=== PATIENT | male | born 1955 | race Caucasian/White ===

== ENCOUNTER 2024-08-28 13:50 | Emergency (ER) | payer MEDICARE, MEDICAID, SELFPAY ==
[2024-08-28] VITALS (13 sets, daily range): BP systolic 116–153; BP diastolic 55–81; PULSE 71–83; RESP 17–20; TEMP 36.6–37; O2SAT 95–98
--- NOTE | ~2024-08-28 | XR_ITS ---
CHEST RADIOGRAPH CLINICAL HISTORY: cough/congestion . COMPARISON: None available TECHNIQUE: Single portable view of the chest. FINDINGS The cardiomediastinal silhouette is partially obscured Deep sulcus sign within the right hemithorax, with a paucity of lung markings as well as significant pleural thickening. Increased density within the right mid to lower lung field, possibly chronic. Cross-sectional imaging is recommended, if the patient is clinically able. IMPRESSION: As above. Reviewed, dictated and finalized at location A. ET AND PULLEY MACHINE OPERATOR IMPRESSION: As above.
--- NOTE | 2024-08-28 14:24 | ED.URI ---
HPI - URI/Sore Throat General Chief Complaint: Upper Respiratory Infection Stated Complaint: flu-like symptoms Time Seen by Provider: 08/28/24 14:24 Source: patient and EMS Mode of arrival: EMS Limitations: no limitations History of Present Illness HPI Narrative: 69 years old white male came to the ED by ambulance from home with his caregiver complaining of general body aches, chills, productive cough over the last 24 hours. Patient had 1 episode of loose stools this morning. Patient is supposed to be on 6 L of oxygen by nasal cannula all the time, patient noncompliance. Patient denies any chest pain, shortness of breath, back pain or abdominal pain. Patient reports that his granddaughter was having similar symptoms few days ago. Related Data Home Medications ?Medication ?Instructions ?Recorded ?Confirmed ?Last Taken ?Type amlodipine 5 mg tablet 7.5 mg PO BID 08/28/24 08/28/24 Unknown History apixaban 5 mg tablet (Eliquis) 5 mg PO BID 08/28/24 08/28/24 Unknown History donepezil 10 mg tablet 10 mg PO HS 08/28/24 08/28/24 Unknown History duloxetine 60 mg capsule,delayed 60 mg PO DAILY 08/28/24 08/28/24 Unknown History release gabapentin 600 mg tablet 300 mg PO TID 08/28/24 08/28/24 Unknown History hydrochlorothiazide 25 mg tablet 25 mg PO DAILY 08/28/24 08/28/24 Unknown History mirtazapine 30 mg disintegrating 30 mg PO HS 08/28/24 08/28/24 Unknown History tablet pantoprazole 40 mg tablet,delayed 40 mg PO HS 08/28/24 08/28/24 Unknown History release potassium chloride 10 mEq 10 meq PO DAILY 08/28/24 08/28/24 Unknown History tablet,extended release (Klor-Con) pravastatin 40 mg tablet 40 mg PO HS 08/28/24 08/28/24 Unknown History primidone 50 mg tablet 50 mg PO HS 08/28/24 08/28/24 Unknown History tamsulosin 0.4 mg capsule 0.4 mg PO DAILY 08/28/24 08/28/24 Unknown History Allergies Allergy/AdvReac Type Severity Reaction Status Date / Time No Known Allergies Allergy Verified 08/28/24 14:13 Review of Systems Review of Systems: All systems reviewed & are unremarkable except as noted in HPI and below Exam Narrative: General appearance: Well-developed, well-nourished Skin: Normal color Head: Normocephalic, nontraumatic Eyes: Clear conjunctiva ENT: Oropharynx normal, ears normal, nose normal Neck: Supple, nontender Chest and respiratory: Airway patent, no respiratory distress, no accessory muscle use Heart: Regular rate/rhythm Abdomen: Soft, nontender, no organomegaly, quiet bowel sounds Vascular: Normal peripheral pulses, normal capillary refill. Musculoskeletal: Normal range of motion, nontender back Neurologic: Alert and oriented ?3, GRADUATE STUDIES DEAN is normal as tested, no gross motor deficit Course Vital Signs Vital signs: Vital Signs Temperature 36.6 C 08/28/24 13:56 Pulse Rate 71 08/28/24 13:56 Respiratory Rate 20 08/28/24 13:56 Blood Pressure 121/70 08/28/24 13:56 Pulse Oximetry 95 08/28/24 13:56 Oxygen Delivery Nasal Cannula 08/28/24 13:56 Oxygen Flow Rate 6 08/28/24 13:56 Temperature 36.6 C 08/28/24 13:56 Pulse Rate 80 08/28/24 14:51 Respiratory Rate 20 08/28/24 14:51 Blood Pressure 121/70 08/28/24 13:56 Pulse Oximetry 98 08/28/24 14:51 Oxygen Delivery Room Air 08/28/24 14:11 Oxygen Flow Rate 6 08/28/24 13:56 MDM - URI/Sore Throat MDM Narrative Medical decision making narrative: PATIENT CAME WITH PRODUCTIVE COUGH AND CHILLS AND RESPIRATORY VIRAL INFECTION CONTACT VITAL SIGNS ARE STABLE PHYSICAL EXAMINATION SHOWING PATIENT WITH INTERMITTENT PRODUCTIVE COUGH, 6 L OF OXYGEN BY NASAL CANNULA /CHRONIC , SCATTERED WHEEZING BILATERALLY DIFFERENTIAL DIAGNOSIS COPD EXACERBATION, PNEUMONIA, UPPER RESPIRATORY VIRAL INFECTION TODAY PATIENT TESTED NEGATIVE FOR COVID, FLU AND RSV CHEST X-RAY SHOWED NO ACUTE ABNORMALITY BLOOD WORKUP TODAY INCLUDES CBC, CMP SHOWED NO ACUTE ABNORMALITIES PATIENT DECLINED BLOOD GAS . HIS SATURATION RUNNING IN THE 98 %, PULSE OXIMETRY ON HIS NORMAL 6 L OF OXYGEN Medical Records Attestation: I reviewed the patient's medical records. Lab Data Attestation: I reviewed the patient's lab results. 08/28/24 14:44 08/28/24 14:44 Labs: Lab Results 08/28/24 08/28/24 Range/Units 14:03 14:44 WBC 9.5 (4.8-10.8) K/mm3 RBC 4.54 L (4.70-6.10) M/mm3 Hgb 12.5 (12.4-15.3) g/dL Hct 39.6 (37.0-46.0) % MCV 87.2 (78.0-102.0) fL MCH 27.5 (27.0-31.0) pg MCHC 31.6 L (32-36) g/dL RDW 14.0 (11.6-14.4) % Plt Count 355 (150-420) K/mm3 MPV 9.8 (8.7-11.0) fl Immature Gran % (Auto) 0.6 H (0.0-0.0) % Neut % (Auto) 55.5 (50.0-70.0) % Lymph % (Auto) 33.9 (18.0-42.0) % [place] % (Auto) 9.1 (2.0-11.0) % Eos % (Auto) 0.7 L (1.0-6.0) % Baso % (Auto) 0.2 (0.0-1.0) % Lymph # (Auto) 3.21 (1.10-4.50) K/mm3 [place] # (Auto) 0.86 (0.10-0.90) K/mm3 Eos # (Auto) 0.07 (0.02-0.50) K/mm3 Baso # (Auto) 0.02 (0.00-0.10) K/mm3 Abs Immat Gran (auto) 0.06 H (0.00-0.00) K/mm3 Absolute Neuts (auto) 5.25 (1.70-7.20) K/mm3 Absolute Nucleated RBC 0.00 (0.00-0.00) K/mm3 Nucleated RBC % 0.0 (0-0.0) % PT 12.2 H (9.50-12.1) Seconds INR 1.1 APTT 33.8 H (23.9-30.70) Sec Sodium 141 (136-145) mmol/L Potassium 3.8 (3.5-5.1) mmol/L Chloride 100 (98-108) mmol/L Carbon Dioxide 34 H (21-32) mmol/L Anion Gap 7 (4-12) mmol/L BUN 10 (7-18) mg/dL Creatinine 1.06 (0.70-1.30) mg/dL Estim Creat Clear Calc 63 ml/min Estimated GFR > 60 (59 - ) Glucose 102 H (70-99) mg/dL Calculated Osmolality 291 (285-295) mOsm/kg Calcium 9.4 (8.5-10.1) mg/dL Total Bilirubin 0.4 (0.00-1.00) mg/dL AST 19 (15-37) U/L ALT 19 (16-63) U/L Alkaline Phosphatase 110 (46-116) U/L Troponin I 9.0 (0.00-60.4) ng/L NT-Pro-B Natriuret Pep 142 H (0-125) pg/mL Total Protein 8.0 (6.4-8.2) g/dL Albumin 3.3 L (3.4-5.0) g/dL Influenza A (RT-PCR) Negative (Negative) Influenza B (RT-PCR) Negative (Negative) RSV (RT-PCR) Negative (Negative) SARS-CoV-2 RNA (RT-PCR) Negative (Negative) Imaging Data Radiologist's impression: Impressions Chest X-Ray 08/28/24 14:25 IMPRESSION: As above. ECG Data EKG #1: Attestation: I personally reviewed and interpreted this ECG as follows: ECG completion date: 08/28/24 Interpretation: NORMAL SINUS RHYTHM AT 75 BEATS PER MINUTE, NONSPECIFIC ST T T-WAVE ABNORMALITIES, ABNORMAL EKG Critical Care Time Critical Care Time Critical Care Time: No Discharge Plan Discharge Clinical Impression: COPD (chronic obstructive pulmonary disease) Patient Disposition: Home, Self-Care Condition: Stable Instructions: Antibiotic Form, COPD (Chronic Obstructive Pulmonary Disease) (DC) Additional Instructions: RETURN IF SYMPTOMS ARE WORSENING , CALL YOUR FAMILY PHYSICIAN FOR APPOINTMENT, TAKE TYLENOL NEEDED FOR ACHES AND PAIN, CONTINUE HOME MEDICATIONS. CONTINUE HOME OXYGEN BY NASAL CANNULA AT 6 L ALL THE TIME Patient Language: [place] Prescriptions: New levofloxacin 500 mg tablet 500 mg PO DAILY Qty: 7 0RF prednisone 20 mg tablet 40 mg PO DAILY 5 Days Qty: 10 0RF No Action duloxetine 60 mg capsule,delayed release(DR/EC) 60 mg PO DAILY hydrochlorothiazide 25 mg tablet 25 mg PO DAILY pantoprazole 40 mg tablet,delayed release (DR/EC) 40 mg PO HS potassium chloride [Klor-Con 10] 10 mEq tablet extended release 10 meq PO DAILY tamsulosin 0.4 mg capsule 0.4 mg PO DAILY donepezil 10 mg tablet 10 mg PO HS mirtazapine 30 mg tablet,disintegrating 30 mg PO HS pravastatin 40 mg tablet 40 mg PO HS primidone 50 mg tablet 50 mg PO HS amlodipine 5 mg tablet 7.5 mg PO BID Eliquis 5 mg tablet 5 mg PO BID gabapentin 600 mg tablet 300 mg PO TID Follow-up/Referrals: UNKNOWN,DOCTOR [Non-Staff] -
--- NOTE | 2024-08-28 14:38 | ECG_ITS ---
Test Date: 2024-08-28 15:01:50 Measurements Intervals [place] Rate: 75 P: 57 HI: 175 QRS: 68 QRSD: 105 T: 66 QT: 412 QTc: 461 Interpretive Statements SINUS RHYTHM WITH SINUS ARRHYTHMIA NONSPECIFIC ST AND T WAVE ABNORMALITY No previous ECG available for comparison Electronically Signed On 08-28-2024 16:20:21 FURNITURE FINISHER HELPER by Chaitanya Howell M.D.
[2024-08-28] MEDS: IPRATROPIUM 0.5 MG/ALBUTEROL SULFATE 2.5 MG AMPUL.NEB 3 ML INHALATION (14:48)
[2024-08-28 14:49] LABS: SARS-CoV-2 RNA PCR Negative (Negative)
[2024-08-28 14:49] LABS: Basophils Absolute Auto 0.02 K/mm3 (0.00-0.10); Basophils Percent Auto 0.2 % (0.0-1.0); Eosinophils Absolute Auto 0.07 K/mm3 (0.02-0.50); Eosinophils Percent Auto 0.7 % (1.0-6.0); Hematocrit 39.6 % (37.0-46.0); Hemoglobin 12.5 g/dL (12.4-15.3); Immature Granulocyte Absolute 0.06 K/mm3 (0.00-0.00); Immature Granulocyte Percent A 0.6 % (0.0-0.0); Lymphocytes Absolute Auto 3.21 K/mm3 (1.10-4.50); Lymphocytes Percent Auto 33.9 % (18.0-42.0); Mean Corpuscular HGB Conc 31.6 g/dL (32-36); Mean Corpuscular Hemoglobin 27.5 pg (27.0-31.0); Mean Corpuscular Volume 87.2 fL (78.0-102.0); Mean Platelet Volume 9.8 fl (8.7-11.0); Monocytes Absolute Auto 0.86 K/mm3 (0.10-0.90); Monocytes Percent Auto 9.1 % (2.0-11.0); Neutrophils Absolute Auto 5.25 K/mm3 (1.70-7.20); Neutrophils Percent Auto 55.5 % (50.0-70.0); Platelet Count Result 355 K/mm3 (150-420); Red Blood Count 4.54 M/mm3 (4.70-6.10); White Blood Count 9.5 K/mm3 (4.8-10.8)
[2024-08-28 14:50] LABS: Influenza A QL RT-PCR Negative (Negative); Influenza B QL RT-PCR Negative (Negative); RSV RNA, RT-PCR Negative (Negative)
[2024-08-28 15:12] LABS: INR 1.1; Partial Thromboplastin Time 33.8 Sec (23.9-30.70); Prothrombin Time 12.2 Seconds (9.50-12.1)
[2024-08-28 15:14] LABS: Alanine Aminotransferase 19 U/L (16-63); Albumin Level 3.3 g/dL (3.4-5.0); Alkaline Phosphatase 110 U/L (46-116); Anion Gap 7 mmol/L (4-12); Aspartate Amino Transferase 19 U/L (15-37); Bilirubin,Total 0.4 mg/dL (0.00-1.00); Blood Urea Nitrogen 10 mg/dL (7-18); Calcium 9.4 mg/dL (8.5-10.1); Carbon Dioxide 34 mmol/L (21-32); Chloride 100 mmol/L (98-108); Estimated CRCL calculation 63 ml/min; Estimated Glomerular Filt Rate > 60; Glucose 102 mg/dL (70-99); NT Pro B Type Natriuretic Pept 142 pg/mL (0-125); Osmolality Calculated 291 mOsm/kg (285-295); Potassium 3.8 mmol/L (3.5-5.1); Sodium 141 mmol/L (136-145)
--- NOTE | 2024-08-28 15:26 | PC.NURSE ---
Per delivery truck driver in room, patient is in electric wheelchair and they are not able to transport in her car. Patient is to be transfered back by [facility] per patient request.
== END 2024-08-28 17:00 | disposition home or self-care (01) ==
PROVIDERS: Emergency Provider Emergency Medicine
DX: J44.9 Chronic obstructive pulmonary disease, unspecified (principal); R06.2 Wheezing; Z91.199 Patient's noncompliance with other medical treatment and regimen due to unspecified reason; Z79.01 Long term (current) use of anticoagulants; Z20.822 Contact with and (suspected) exposure to COVID-19
CPT/HCPCS: 36415; 71045; 80053; 83880; 84484; 85025; 85610; 85730; 87637; 93005; 94640; 99284

== ENCOUNTER 2025-02-23 14:02 | Emergency (ER) | payer MEDICARE, MEDICAID, SELFPAY ==
[2025-02-23] VITALS (9 sets, daily range): BP systolic 95–126; BP diastolic 67–84; PULSE 84–95; RESP 20; TEMP 36.8; O2SAT 95–97
--- OUTSIDE RECORDS SUMMARY | 2025-02-23 14:08 | XMS_ITS | Data Portability ---
Author Organization [facility], [address] [place] [address] [place]rology ([place]) Address [address] [address] Care Team Providers Care Cook Pie Name Role Phone MATT THAO Primary Care Provider [phone] Assessment Encounter Date Assessment Date Assessment LastModified by Organization Details LastModified Time 11/27/2023 11/27/2023 Patient in office for suture removal. Sutures were removed from the patient's incision without difficulty. The incision remained intact and well approximated. Patient tolerated suture removal with no complaints. Instructed the patient on aftercare instructions post suture removal and encouraged the patient to call back with any questions/concer ns. Patient verbalized understanding and had no further questions. [email or web address] Not available 11/27/2023 16:01:56 12/04/2024 12/04/2024 1. Abdominal Aortic Aneurysm with Stent Graft Continued surveillance indicated; aneurysm shows only trivial enlargement, not warranting immediate intervention. Monitor annually with aortic ultrasound; consider a CTA if substantial changes occur. 2. Influenza Symptoms appear consistent with resolving influenza, no further medical intervention required unless symptoms worsen. 3. Obesity Encouragement to continue active lifestyle as it promotes overall health, particularly vascular health. Smoking cessation highlighted as a positive health change. Procedure Documentation: - Obtained pulses, including pulses in the lower extremities, as part of vascular examination. [email or web address] Not available 12/04/2024 12:14:52 Plan of Treatment Reminders Order Date Submit Date Provider Last Modified By Organization Details Last Modified Time Details Appointments Imaging 5.PRO 2025 09:30A M Radiology Not available Not available Not available Establis hed Patient 15.EST 2025 10:15A M Dr. Ed Melgoza Not available Not available Not available Lab None recorded . Referral None recorded . Procedures None recorded . Surgeries None recorded . Imaging US, duplex, aorta + iliac vessels, limited 2024 026 [email or web address] [facility] Only [facility], [address], [place], [address], 12/04/2024 12:14:15 Medication Orders None recorded . Patient TargetsNo targets recorded. Patient InstructionsNo instructions recorded. Reason for Referral None Reported. Results Created Date Observation Date Name Description Value Unit Range Abnormal Flag Note LastModifiedBy Organization Detail LastModifiedTime 10/23/19 24 10/25/2023 S[facility] SURGI LUIS M PATHO LOGY path report [facility] Depar tment of Labor atory Medic ine [address] [facility] [address] [place] [facility] [place] [address] Telep nyla: [phone], exten tarah 07 Patho logy Repor t Surgi luis m Patho logy Repor t Name: DONIS ROMO Speci men #: [id number] Age: [id number] (Age: 68) Locat ion: [facility] COD Sex: M Proce dure Date: Hospi cinthia #: [id number] 321 Date Recei juan carlos: Date Repor amy: Provi jeannine: ANGIE VERGARA MD [facility] e: Skin, nose, excis ion Clini luis m Histo ry: Basal cell carci noma. Gross Descr iptio n: Recei juan carlos in forma shukri, label ed with a patie nt label and as re-e xcisi on basal cell carci noma is a 1.3 x 1.1 cm somew hat round excis ion of white -mac skin excis ed to a depth of up to 0.5 cm. On the surfa ce is a 0.[address] raise d, harkins- mac nodul e. The speci men is orien amy with a stitc h which the requi sitio n state s is super ior 12:00 . The speci men is inked as follo ws: 12:00 to 6:00 black , 6:00 to 9:00 blue and 9:00 to 12:00 yello w. The 12:00 and 6:00 edges are shave d and submi tted in casse tte 1. The remai nder of the speci men is seria lly secti oned and entir salma submi tted in casse ttes 2 and 3. Gross exami natio n (when appli cable ), inter preta tion, and sign out were perfo rmed at [facility], [address] [place] [address] . FINAL DIAGN OSIS: SKIN, NOSE, RE-EX CISIO N: - BASAL CELL CARCI NOMA, NODUL AR TYPE. - CHIRAG NS NEGAT TIMBO FOR CARCI NOMA. Jonelle ctron icall y Ghazala d Out Mukesh rachel M.D. [phone] [id number] Not Available [facility] Only - [facility] [address] [place], [address], 10/25/2023 10:15:33 12/03/19 24 11/29/2023 US, duple x, aorta + iliac vesse ls, compl ete [address] [address] Teleph one Name: Tomi Romo 1325 Exam Date: 2023 Age: 68 Physic dax: Everardo orta MD, Ed : 1954 Examin ation: US AORTA, ILIAC, COMPLE TE INDICA TION: 68-yea r-old gentle man histor y of aneury sm repair with stent graph presen ts for follow -up . FINDIN GS: Proxim al aortic veloci ty is 43 cm/s. Mid aortic veloci ty is 28 cm/s. The proxim al stent graft veloci ty is 41, right limb 51, distal 104 cm/s the distal common iliac artery veloci ty is 202 cm/s The left limb proxim al veloci ty 69, distal 181 cm/s in the left distal common iliac artery veloci ty is 167 cm/s. The proxim al aortic diamet ers 2.69 x 2.66 cm, the aortic diamet er at the level the renal arteri es 2.08 x 2.8 cm. The residu al aneury sm sac measur es 3.78 x 3.96 cm withou t eviden ce of endole ak IMPRES TARAH: Aortoi liac duplex demons trates a patent aortic endogr aft in place with no eviden ce for stenos is within the graft or at the anasto mari. Aortic residu al sac size has a maximu m diamet er 3.96 cm. There is no endova scular leak noted. Electr onical ly signed in Stoner cribe by: ED Orta MD on:11/17 2:16 PM cc: INTERFACE [facility] [address] [place] [address], [address], 12/03/2023 15:19:28 04/02/20 24 09/11/2022 imagi ng/di agnos tic resul t No observ ation record ed. [email or web address] Not Available 04/02/2024 03:42:27 06/16/20 24 09/24/2023 imagi ng/di agnos tic resul t No observ ation record ed. [email or web address] Not Available 20:01:20 12/05/19 25 12/04/2024 US, duple x, aorta + iliac vesse ls, compl ete [place] [id number] Teleph one Name: Tomi Romo [id number] Exam Date: 2024 Age: 69 Physic dax: Everardo orta MD, Ed : 1954 Examin ation: US AORTA, ILIAC, COMPLE TE INDICA TION: 69-yea r-old gentle man with histor y of abdomi nal aortic aneury sm stent grafti ng presen ts for follow -up. He has a remote histor y of a right limb graft occlus ion back in 2018. His initia l stent graft placem ent was over a decade ago FINDIN GS: The aorta is well-v isuali zed. The proxim al aortic veloci ty 60 cm/s mid aortic veloci ty is 54 cm/s. The proxim al stent graft veloci ty is 39 cm/s. The right limb proxim al veloci ty is 39, distal 35 cm/s the right distal common iliac artery veloci ty is 51 cm/s. The left limb proxim al veloci ty is 34, distal 45 cm/s the left distal common iliac artery veloci ty is 51 cm/s The proxim al aortic diamet ers 1.5 x 1.99 cm the mid aortic diamet ers 1.89 x 2.4 cm. The residu al aneury sm sac measur es 3.6 x 4.1 cm with possib le small endole ak apprec iated. IMPRES TARAH: Infrar enal abdomi nal aortic aneury sm stent graft widely patent . Residu al aneury sm sac measur ing 3.6 x 4.1 cm which is slight ly larger than one year ago when aneury sm sac measur es 3.8 x 3.6 cm Electr onical ly signed in Stoner cribe by: ED Orta MD on:11/17 11:06 AM cc: INTERFACE [facility] [address] [place] [address], [address], 12/04/2024 12:09:44 02/20/20 25 10/14/2018 imagi ng/di agnos tic resul t No observ ation record ed. [email or web address] Not Available 0 02/19/2025 19:34:20 02/20/20 25 02/05/2020 imagi ng/di agnos tic resul t No observ ation record ed. [email or web address] Not Available 0 02/19/2025 19:34:21 02/20/20 25 03/14/2020 imagi ng/di agnos tic resul t No observ ation record ed. [email or web address] Not Available 0 02/19/2025 19:34:23 02/20/20 25 03/22/2020 imagi ng/di agnos tic resul t No observ ation record ed. [email or web address] Not Available 0 02/19/2025 19:34:23 02/20/20 25 03/22/2020 imagi ng/di agnos tic resul t No observ ation record ed. [email or web address] Not Available 0 02/19/2025 19:34:24 02/20/20 25 03/22/2020 imagi ng/di agnos tic resul t No observ ation record ed. [email or web address] Not Available 0 02/19/2025 19:34:25 02/20/20 25 05/16/2020 imagi ng/di agnos tic resul t No observ ation record ed. [email or web address] Not Available 0 02/19/2025 19:34:30 02/20/20 25 05/16/2020 imagi ng/di agnos tic resul t No observ ation record ed. [email or web address] Not Available 0 02/19/2025 19:34:31 02/20/20 25 05/18/2019 imagi ng/di agnos tic resul t No observ ation record ed. [email or web address] Not Available 0 02/19/2025 19:34:32 02/20/20 25 05/18/2019 imagi ng/di agnos tic resul t No observ ation record ed. [email or web address] Not Available 0 02/19/2025 19:34:32 02/20/20 25 06/09/2020 imagi ng/di agnos tic resul t No observ ation record ed. [email or web address] Not Available 0 02/19/2025 19:34:34 02/20/2006/09/2020 imagi ng/di agnos tic resul t No observ ation record ed. [email or web address] Not Available 0 02/19/2025 19:34:35 Result Notes None recorded. Problems Name Problem SNOMED Code Status Onset Date Resolution Date Notes Provider Name and Address Organization Details Recorded Time Aneurysm of infrarenal abdominal aorta 435120155 Active 2024 Ed Melgoza MD [address] [place], [address] [place] [address] 5 12:13:51 Postoperative pain 342076478 Active 2023 Mamie L. Fasig, ATTENDING ANESTHESIOLOGIST, MICROBIOLOGICAL LABORATORY TECHNICIAN [address], [place], [address] [place] [address] 4 15:22:19 Problem Notes None recorded. Medical Equipment None Reported. Allergies Allergen ID Allergen Name Allergen Category Reaction Reaction Severity Criticality Documentation Date Start Date Code Code System Note Provider Name and Address Organization Details Recorded Time 0594766 iodine-so dium iodide medicatio n Not available Not available Not available 09/18/20232010 19739 UNK Not Available [facility] 4 04:17:38 0318549 meperidin e medicatio n Not available Not available Not available 09/18/20232010 6754 RxNorm Not Available [facility] 4 04:17:39 7020041 latex environme nt,medica tion Not available Not available Not available 09/18/20232020 87315 91 RxNorm Comme nt: Latex ; Not Available [facility] 4 04:17:39 8523385 Medicinal product acting as adhesive (product) environme nt,medica tion Not available Not available Not available 09/18/20232020 90832 2008 SNOMED Comme nt: Tape ; Not Available [facility] 4 04:17:39 9195319 Red Dye food,medi cation Not available Not available Not available 09/18/20232020 86480 UNK Not Available [facility] 4 04:17:39 393801 Iodinated contrast media (substanc e) medicatio n hives Not available Not available 09/16/20232014 29294 2004 SNOMED React ion: Hives ; Comme nt: X-Ray Iodin ated Contr ast R eacti on Date: 18 Jan 2010 ; Not Available [facility] 4 21:29:39 Medications Name Sig Start Date Stop Date Status Note LastModified by Organization Details LastModified Time primidone 50 mg tablet active Not Available Not Available Not Available potassium chloride ER 10 mEq capsule,extended release active Not Available Not Available Not Available gabapentin 600 mg tablet active Not Available Not Available No t Available donepezil 5 mg tablet active Not Available Not Available Not Available pravastatin 40 mg tablet active Not Available Not Available No t Available hydrocodone 5 mg-acetaminophen 325 mg tablet TAKE 1 TABLET BY MOUTH TWICE DAILY NEEDED active Not Available Not Available No t Available acetaminophen 300 mg-codeine 30 mg tablet Take 1 tablet every 6 hours by oral route. 2023 active Not Available Not Available Not Avai lable amlodipine 5 mg tablet active Not Available Not Available Not Available tamsulosin 0.4 mg capsule active Not Available Not Available N ot Available pantoprazole 40 mg tablet,delayed release active Not Available Not Available Not Available mirtazapine 30 mg tablet active Not Available Not Available No t Available hydrochlorothiaz gini 25 mg tablet active Not Available Not Avail able Not Available duloxetine 60 mg capsule,delayed release active Not Available Not Available Not Available calcium 600 mg (as carbonate)-vitam in D3 10 mcg (400 unit) tablet active Not Available Not Available Not Available CoQ-10 100 mg capsule active Not Available Not Available Not Available Eliquis 5 mg tablet active Not Available Not Available Not Available Trelegy Ellipta 100 mcg-62.5 mcg-25 mcg powder for inhalation INHALE 1 PUFF BY MOUTH DAILY. RINSE MOUTH AFTER USE active Not Available Not Available No t Available Vitals Date Recorded Body height Body mass index (BMI) Body weight Provider Name and Address Organization Details Last Updated DateTime 11/04/2023 172.72 cm 30.4 kg/m2 14109.47 g Serg Wiley [facility] 11/04/2023 15:38:51 Date Recorded Body weight Heart rate Oxygen saturation Oxygen saturation in Arterial blood by Pulse oximetry Systolic And Diastolic Provider Name and Address Organization Details Last Updated DateTime 5 52539.7 4 g 80 /min 90 % 90 % 122/62 mm[Hg] Stacey Queen [facility] 5 12:03:34 Social History None recorded. Functional Status None recorded. Mental Status None recorded. Family History Nothing Reported. Medical History No medical history recorded. Past Encounters Encounter ID Performer Location Encounter Start Date Encounter Closed Date Diagnosis/Indication Diagnosis SNOMED-CT Code Diagnosis ICD10 Code Diagnosis Note [id number] Mamie Lin, ATTENDING ANESTHESIOLOGIST, MICROBIOLOGICAL LABORATORY TECHNICIAN [facility] ([place]) [address] [place] [address] 11/04/2023 15:20:49 11/04/2023 16:48:09 Postoperative care 594772223 Z48.817 History of malignant neoplasm of skin 358538828 Z85.828 Postoperative state 1957 5002 Z98.695 [id number] Mamie Lin APRN, MICROBIOLOGICAL LABORATORY TECHNICIAN [facility] ([place]) [address] [place] [address] 11/27/2023 15:20:24 11/27/2023 17:21:52 [id number] Ed Melgoza MD [address] [facility] ([place]) [address] [place] [address] 12/04/2024 10:56:46 12/04/2024 12:17:26 Aneurysm of infrarenal abdominal aorta 143190400 I71.43 Health Concerns Section Related Observation LastModified by Organization Detai ls LastModified Time None Recorded Concern Status LastModified by Organization Details LastModified Time None Recorded Advance Directives Directive None Recorded Payers Insurance Date Sequence Insurance Name Policy Number Policy Espinoza Covered Member ID Espinoza Member ID Guarantor Name 12/04/2024 1 [place] Tomi Romo [id number] Tomi Romo 12/04/2024 2 [place] [employer] Tomi Romo [id number] Tomi Romo Notes Date Note Type Note Provider Name and Address Organization Details Recorded Time 12/04/2024 text/html The patient is a 69-year-old male presenting for routine surveillance of an abdominal aortic aneurysm with a stent graft. This aneurysm was previously treated, with intervention in 2018, to address an occlusion, with subsequent annual follow-up. Current ultrasound findings show marginal growth, regarded as trivial, with no need for intervention. The patient experienced influenza symptoms a few weeks ago, such as sweats and congestion, but these are now resolving. He denies any persistent fever. Ed Melgoza MD [address] [place] [address], [phone], [facility] 12/14/2024 23:34:55
--- OUTSIDE RECORDS SUMMARY | 2025-02-23 14:08 | XMS_ITS ---
Author Organization Unknown Address [place], [place] [id number] Phone Care Team Providers Care Filtration Plant Operator Name Role Phone FLAVIO PERKINSALD Attending Unavailable Immunization Immunization Date Status Additional Notes Code Code System pneumococcal polysaccharide PPV23 11/27/2021 Completed 33 CVX Influenza, high-dose, trivalent, PF 05/07/2014 Completed 135 CVX Influenza, high-dose, trivalent, PF 06/29/2014 Completed 135 CVX Influenza, split virus, quadrivalent, PF 07/27/2015 Completed 150 CVX Influenza, split virus, quadrivalent, PF 07/26/2016 Completed 150 CVX Influenza, split virus, quadrivalent, PF 05/30/2017 Completed 150 CVX Influenza, adjuvanted, quadrivalent, PF 09/12/2023 Completed 205 CVX COVID-19, mRNA, LNP-S, PF, 1 00 mcg/0.5mL dose or 50 mcg/0.25mL dose 11/04/2020 Completed 207 CVX COVID-19, mRNA, LNP-S, PF, 1 00 mcg/0.5mL dose or 50 mcg/0.25mL dose 01/09/2021 Completed 207 CVX COVID-19, mRNA, LNP-S, PF, 1 00 mcg/0.5mL dose or 50 mcg/0.25mL dose 08/23/2021 Completed 207 CVX Results MRI ABDOMEN W+WO CONTRAST - Completed: 11/11/2024 10:24 LOINC: \TM00\\12PI\\DRAo\\BM09\ \MRHo\ [facility] [id number] [place] [id number] ---------NAME--------- NUMBER SEX AGE ADMIT DISC. XRAY# F/C TYPE ZEPP JR SERAFIN KIM [id number] M 69 11/11/24 11/11/24 18475 O/P DATE OF : 1955 M/R# [id number] #: [id number] RM \MRHx\ LOCATION: TRANSCRIBED: 11/11/24 19:04 MRI ABDOMEN W+WO CONTRAST [id number] COMPLETED:11/11/24 10:24 IRAJ [id number] {REASON-MRI ABD: ADRENAL NODULE PHYSICIAN: FLAVIO GREGORIO R A D I O L O G Y R E P O R T MRI Abdomen, with and without IV Contrast Exam Date: 11/11/2024 10:49 AM Comparison: MRI ABDOMEN W+WO CONTRAST on DOS: 05/13/24 History: ADRENAL NODULE Technique: Multisequence multiplanar MRI images were obtained of the abomen. 15 mL of proHance was administered intravenously during this examination. Initial imaging is obtained without intravenous contrast. Findings: Liver: Subcentimeter hepatic cysts. Spleen: Subcentimeter splenic cyst. Pancreas: The pancreas is normal in appearance without focal lesions. Gallbladder and ducts: Gallbladder is normal in appearance. The cystic duct, right and left hepatic ducts, common hepatic duct, and common bile ducts are unremarkable. The pancreatic duct is within normal limits. Adrenal glands: Left adrenal nodule measuring up to 30 mm which does not definitely demonstrate signal dropout. Nodule demonstrates intrinsic high T1 signal. No definite enhancement. Kidneys: Bilateral renal cysts including proteinaceous/ hemorrhagic left renal cysts. Visualized bowel: Grossly unremarkable. Vasculature: Prior stent graft partially imaged. Lymphadenopathy: No evidence for lymphadenopathy. Ascites: Absent. Musculoskeletal: Multiple compression fractures in the thoracic and lumbar spine. IMPRESSION: 1. Stable left adrenal nodule measuring up to 30 mm is not definitely a benign adrenal adenoma. High T1 signal suggests hemorrhage. Recommend clinical correlation and continued follow-up. 2. Hepatic, bilateral renal, and splenic cysts. Multiple compression fractures in the spine. 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 HS:Y. RVISOR CLOTH WINDING \ITLo\ \UNDo\ \UNDx\ \ITLx\ Reviewed and Electronically Signed by: Nav Tinoco MD Signed Date: 11/11/24 19:04 Social History Type Status Start Date End Date Code Code Syst em Smoking History Current every day smoker 612019874 SNOMED CT Smoking History Unknown if ever smoked [id number] Sex Male Medications Medication Start Date End Date Route Frequency Dose Code Code System Medication Instructions Home Meds Advair Diskus 250/50 0.25MG-0.05MG/1INH Inhalation Disk 02/16/2021 Unknown INHALATION EVERY 12 HOURS 1 unit(s) 653146 RxNorm 1 EACH INHALATION EVERY 12 HOURS Calcium Carbonate with Vitamin D 600MG-200IU Oral Tablet 02/16/2021 Unknown ORAL TWICE A DAY 2 TABLET RxNorm TAKE 2 TABLET ORAL TWICE A DAY DULoxetine HCl 60MG Oral Capsule, Delayed Release 02/16/2021 Unknown ORAL ONCE A DAY 60 MILLIGRA MS 853968 RxNorm TAKE 60 MILLIGRAMS ORAL ONCE A DAY Donepezil HCl 5MG Oral Tablet 02/16/2021 Unknown ORAL AT BEDTIM E 5 MILLIGRA MS 643533 RxNorm TAKE 5 MILLIGRAMS ORAL AT BEDTIME Eliquis 5MG Oral Tablet 02/16/2021 Unknown ORAL TWICE A DAY 5 MILLIGRA MS 8661494 RxNorm TAKE 5 MILLIGRAMS ORAL TWICE A DAY Gabapentin 600MG Oral Tablet 02/16/2021 Unknown ORAL THREE TIMES A DAY 600 MILLIGRA MS 477183 RxNorm TAKE 600 MILLIGRAMS ORAL THREE TIMES A DAY HYDROcodone bitartrate-acetamin ophen 5MG-325MG Oral Tablet 02/16/2021 Unknown ORAL NEEDED 3 TIMES A DAY 1 unit(s) 845465 RxNorm TAKE 1 EACH ORAL NEEDED 3 TIMES A DAY Mirtazapine 30MG Oral Tablet 02/16/2021 Unknown ORAL AT BEDTIM E 30 MILLIGRA MS 523211 RxNorm TAKE 30 MILLIGRAMS ORAL AT BEDTIME Nitroglycerin 0.4MG/1SPRAY Sublingual [place] 02/16/2021 Unknown SUBLINGUAL DIRECT ED 1 unit(s) 047419 RxNorm PLACE 1 EACH SUBLINGUAL DIRECTED Pantoprazole Sodium 40 MG Oral Tablet, Delayed Release 02/16/2021 Unknown ORAL ONCE A DAY 40 MG 767240 RxNorm TAKE 40 MG ORAL ONCE A DAY Pravastatin Sodium 40MG Oral Tablet 02/16/2021 Unknown ORAL AT BEDTIM E 40 MILLIGRA MS 515983 RxNorm TAKE 40 MILLIGRAMS ORAL AT BEDTIME Primidone 50MG Oral Tablet 02/16/2021 Unknown ORAL AT BEDTIM E 50 MILLIGRA MS 742565 RxNorm TAKE 50 MILLIGRAMS ORAL AT BEDTIME Tamsulosin HCl 0.4MG Oral Capsule 02/16/2021 Unknown ORAL ONCE A DAY 0.4 MILLIGRA MS 631005 RxNorm TAKE 0.4 MILLIGRAMS ORAL ONCE A DAY Ventolin HFA 0.09MG/1Actuation Inhalation Suspension 02/16/2021 Unknown INHALATION DIRECT ED 1 unit(s) 658582 RxNorm 1 EACH INHALATION DIRECTED amLODIPine Besylate 5MG Oral Tablet 02/16/2021 Unknown ORAL TWICE A DAY 1.5 TABLET 599254 RxNorm TAKE 1.5 TABLET ORAL TWICE A DAY Assessment You had the following problems:SOBLABORATORY TEST RESULT ABNORMAL Hospital Discharge Instructions Should you have any questions prior to discharge, please contact a member of your healthcare team. If you have left the hospital and have any questions, please contact your primary care physician. Reason For Referral No Data Found Problems Problem Start Date Resolved Date Status Code Code System SOB active 237428055 RawFlowOMED-CT LABORATORY TEST RESULT ABNORMAL active 309253577 SNOMED-CT Allergies and Adverse Reactions Allergy Substance Reaction Severity Start Date Concern Status Code Code System CONTRAST MEDIA, IODINE RELATED Hives (SNOMED-CT: 011099807) Moderate 02/20/2020 Active 665547118 SNOMED-CT Plan of Treatment Song Follow Up Visit 11/13/2024 MRI Abdomen WWO Contrast (46135) 2024 Song Follow Up Visit 05/14/2025 Encounters Encounter Diagnosis Start Date Code Code Sys tem Disorder of adrenal gland, unspecified 11/11/2024 SNOMED-CT Personal Care Team Section Performer Name Performer Role Active Date Inactive Da te Karel Nathan PCP - Primary care physician 2021-11-29 2023-07-31 Karel Nathan PCP - Primary care physician 2023-09-24 Imaging Narrative Notes [facility] 11/11/2024 19:[address] [address] ---------NAME--------- NUMBER SEX AGE ADMIT DISC. XRAY# F/C TYPE ZEPP SERAFIN KIM [id number] M 69 11/11/24 11/11/24 64022 MB O/P DATE OF : 1955 M/R# [id number] #: [id number] LOCATION: TRANSCRIBED: 11/11/24 19:04 MRI ABDOMEN W+WO CONTRAST [id number] COMPLETED:11/11/24 10:24 IRAJ [id number] {REASON-MRI ABD: ADRENAL NODULE PHYSICIAN: FLAVIO GREGORIO RADIOLOGY REPORT MRI Abdomen, with and without IV Contrast Exam Date: 11/11/2024 10:49 AM Comparison: MRI ABDOMEN W+WO CONTRAST on DOS: 05/13/24 History: ADRENAL NODULE Technique: Multisequence multiplanar MRI images were obtained of the abomen. 15 mL of proHance was administered intravenously during this examination. Initial imaging is obtained without intravenous contrast. Findings: Liver: Subcentimeter hepatic cysts. Spleen: Subcentimeter splenic cyst. Pancreas: The pancreas is normal in appearance without focal lesions. Gallbladder and ducts: Gallbladder is normal in appearance. The cystic duct, right and left hepatic ducts, common hepatic duct, and common bile ducts are unremarkable. The pancreatic duct is within normal limits. Adrenal glands: Left adrenal nodule measuring up to 30 mm which does not definitely demonstrate signal dropout. Nodule demonstrates intrinsic high T1 signal. No definite enhancement. Kidneys: Bilateral renal cysts including proteinaceous/ hemorrhagic left renal cysts. Visualized bowel: Grossly unremarkable. Vasculature: Prior stent graft partially imaged. Lymphadenopathy: No evidence for lymphadenopathy. Ascites: Absent. Musculoskeletal: Multiple compression fractures in the thoracic and lumbar spine. IMPRESSION: 1. Stable left adrenal nodule measuring up to 30 mm is not definitely a benign adrenal adenoma. High T1 signal suggests hemorrhage. Recommend clinical correlation and continued follow-up. 2. Hepatic, bilateral renal, and splenic cysts. Multiple compression fractures in the spine. 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 HS:Y. RVISOR CLOTH WINDING Reviewed and Electronically Signed by: Nav Tinoco MD Signed Date: 11/11/24 19:04
--- OUTSIDE RECORDS SUMMARY | 2025-02-23 14:09 | XMS_ITS ---
Author Organization Unknown Address [place], [place] [id number] Phone Care Team Providers Care Model Set Artist Name Role Phone FLAVIO KEEN Attending Unavailable NO PCP Primary Unavailable Immunization Immunization Date Status Additional Notes [...] mcg/0.25mL dose 08/23/2021 Completed 207 CVX Results COMPREHENSIVE METABOLIC PANE L - Collect Date/Time: 09/05/2023 10:53 [facility] ID: [id number] [place], [place], [id number] LOINC: 26710-2 Test Value Unit Reference Range Code Code System Flag FASTING NO BUN 13 mg/dL L=7 H=20 3094-0 LOINC CREATININE 0.80 mg/dL L=0.66 H=1.25 2160-0 LOINC GLUCOSE 94 mg/dL L=74 H=106 2345-7 LOINC SODIUM 142 mmol/L L=132 H=144 2951-2 LOINC POTASSIUM 4.2 mmol/L L=3.5 H=5.1 2823-3 LOINC CHLORIDE 97 mmol/L L=98 H=107 2075-0 LOINC L CO2 39.0 mmol/L L=22.0 H=30.0 2028-9 LOINC H ANION GAP 10 L=10 H=20 73686-7 LOINC OSMOLALITY 294 mOs/kG L=280 H=296 32477-7 LOINC BUN/CREAT 16.3 3097-3 LOINC CALCIUM 10.3 mg/dL L=8.3 H=10.5 01364-5 LOINC AST 20 U/L L=15 H=46 1920-8 LOINC ALT 15 U/L L=9 H=72 1742-6 LOINC ALKALINE PHOS 95 U/L L=38 H=126 6768-6 LOINC TOTAL BILI 0.4 mg/dL L=0.2 H=1.3 1975-2 LOINC ALBUMIN 4.1 G/dL L=3.5 H=5.0 1751-7 LOINC TOTAL PROTEIN 8.1 g/L L=6.3 H=8.2 2885-2 LOINC A/G RATIO 1.0 17675-6 LOINC AGE 68 51380-5 LOINC eGFR NON-AFR 102 ml/min eGFR AFR AMER 123 ml/min LIPID PANEL - Collect Date/T chanel: 09/05/2023 10:53 [facility] ID: [id number] [place], [place], [id number] LOINC: 72666-8 Test Value Unit Reference Range Code Code System Flag FASTING NO CHOLESTEROL 142 mg/dL L=0 H=200 2093-3 LOINC TRIGLYCERIDE 98 mg/dL L=0 H=150 2571-8 LOINC HDL 46 mg/dL L=40 H=60 2085-04 [facility] LDL 81 mg/dL 2088-08 [facility] Social History Type Status Start Date End Date Code Code Syst em Smoking History Current every day smoker 444071552 SNOMED CT Smoking History Unknown if ever smoked [address] Sex Male Medications Medication Start Date End Date Route Frequency Dose Code Code System Medication Instructions Home Meds Advair Diskus 250/50 0.25MG-0.05MG/1INH Inhalation Disk 02/16/2021 Unknown INHALATION EVERY 12 HOURS 1 unit(s) 402011 RxNorm 1 EACH INHALATION EVERY 12 HOURS Calcium Carbonate with Vitamin D 600MG-200IU Oral Tablet 02/16/2021 Unknown ORAL TWICE A DAY 2 TABLET RxNorm TAKE 2 TABLET ORAL TWICE A DAY DULoxetine HCl 60MG Oral Capsule, Delayed Release 02/16/2021 Unknown ORAL ONCE A DAY 60 MILLIGRA MS 750491 RxNorm TAKE 60 MILLIGRAMS ORAL ONCE A DAY Donepezil HCl 5MG Oral Tablet 02/16/2021 Unknown ORAL AT BEDTIM E 5 MILLIGRA MS 281149 RxNorm TAKE 5 MILLIGRAMS ORAL AT BEDTIME Eliquis 5MG Oral Tablet 02/16/2021 Unknown ORAL TWICE A DAY 5 MILLIGRA MS 7506009 RxNorm TAKE 5 MILLIGRAMS ORAL TWICE A DAY Gabapentin 600MG Oral Tablet 02/16/2021 Unknown ORAL THREE TIMES A DAY 600 MILLIGRA MS 620643 RxNorm TAKE 600 MILLIGRAMS ORAL THREE TIMES A DAY HYDROcodone bitartrate-acetamin ophen 5MG-325MG Oral Tablet 02/16/2021 Unknown ORAL NEEDED 3 TIMES A DAY 1 unit(s) 780156 RxNorm TAKE 1 EACH ORAL NEEDED 3 TIMES A DAY Mirtazapine 30MG Oral Tablet 02/16/2021 Unknown ORAL AT BEDTIM E 30 MILLIGRA MS 092313 RxNorm TAKE 30 MILLIGRAMS ORAL AT BEDTIME Nitroglycerin 0.4MG/1SPRAY Sublingual [place] 02/16/2021 Unknown SUBLINGUAL DIRECT ED 1 unit(s) 918787 RxNorm PLACE 1 EACH SUBLINGUAL DIRECTED Pantoprazole Sodium 40 MG Oral Tablet, Delayed Release 02/16/2021 Unknown ORAL ONCE A DAY 40 MG 339868 RxNorm TAKE 40 MG ORAL ONCE A DAY Pravastatin Sodium 40MG Oral Tablet 02/16/2021 Unknown ORAL AT BEDTIM E 40 MILLIGRA MS 584622 RxNorm TAKE 40 MILLIGRAMS ORAL AT BEDTIME Primidone 50MG Oral Tablet 02/16/2021 Unknown ORAL AT BEDTIM E 50 MILLIGRA MS 080358 RxNorm TAKE 50 MILLIGRAMS ORAL AT BEDTIME Tamsulosin HCl 0.4MG Oral Capsule 02/16/2021 Unknown ORAL ONCE A DAY 0.4 MILLIGRA MS 149670 RxNorm TAKE 0.4 MILLIGRAMS ORAL ONCE A DAY Ventolin HFA 0.09MG/1Actuation Inhalation Suspension 02/16/2021 Unknown INHALATION DIRECT ED 1 unit(s) 915609 RxNorm 1 EACH INHALATION DIRECTED amLODIPine Besylate 5MG Oral Tablet 02/16/2021 Unknown ORAL TWICE A DAY 1.5 TABLET 714236 RxNorm TAKE 1.5 TABLET ORAL TWICE A [...] Date Status Code Code System SOB active 110785389 SNOMED-CT LABORATORY TEST RESULT ABNORMAL active 345605512 SNOMED-CT Allergies and Adverse Reactions Allergy Substance Reaction Severity Start Date Concern Status Code Code System CONTRAST MEDIA, IODINE RELATED Hives (SNOMED-CT: 786720077) Moderate 02/20/2020 Active 941350408 SNOMED-CT Plan of Treatment Song Follow Up Visit 11/13/2024 MRI Abdomen WWO Contrast (98689) 2024 Song Follow Up Visit 05/14/2025 Encounters Encounter Diagnosis Start Date Code Code Sys tem Mixed hyperlipidemia 09/05/2023 SNOMED- CT Personal Care Team Section Performer Name Performer Role Active Date Inactive Da oleksandr Nathan PCP - Primary care physician 2021-11-29 2023-07-31 Karel Nathan PCP - Primary care physician 2023-09-24
--- OUTSIDE RECORDS SUMMARY | 2025-02-23 14:09 | XMS_ITS ---
Author Organization Unknown Address [id number] [place] [phone] Phone Care Team Providers Care Production Superintendent Name Role Phone SYLVIA ROMAN Attending Unavailable FLAVIO KEEN Primary Unavailable Immunization Immunization Date Status Additional [...] 50 mcg/0.25mL dose 08/23/2021 Completed 207 CVX Social History Type Status Start Date End Date Code Code Syst em Smoking History Current every day smoker 612667606 SNOMED CT Smoking History Unknown if ever smoked [address] Sex Male Medications Medication Start Date End Date Route Frequency Dose Code Code System Medication Instructions Home Meds Advair Diskus 250/50 0.25MG-0.05MG/1INH Inhalation Disk 02/16/2021 Unknown INHALATION EVERY 12 HOURS 1 unit(s) 516358 RxNorm 1 EACH INHALATION EVERY 12 HOURS Calcium Carbonate with Vitamin D 600MG-200IU Oral Tablet 02/16/2021 Unknown ORAL TWICE A DAY 2 TABLET RxNorm TAKE 2 TABLET ORAL TWICE A DAY DULoxetine HCl 60MG Oral Capsule, Delayed Release 02/16/2021 Unknown ORAL ONCE A DAY 60 MILLIGRA MS 591643 RxNorm TAKE 60 MILLIGRAMS ORAL ONCE A DAY Donepezil HCl 5MG Oral Tablet 02/16/2021 Unknown ORAL AT BEDTIM E 5 MILLIGRA MS 797164 RxNorm TAKE 5 MILLIGRAMS ORAL AT BEDTIME Eliquis 5MG Oral Tablet 02/16/2021 Unknown ORAL TWICE A DAY 5 MILLIGRA MS 0655712 RxNorm TAKE 5 MILLIGRAMS ORAL TWICE A DAY Gabapentin 600MG Oral Tablet 02/16/2021 Unknown ORAL THREE TIMES A DAY 600 MILLIGRA MS 992824 RxNorm TAKE 600 MILLIGRAMS ORAL THREE TIMES A DAY HYDROcodone bitartrate-acetamin ophen 5MG-325MG Oral Tablet 02/16/2021 Unknown ORAL NEEDED 3 TIMES A DAY 1 unit(s) 233168 RxNorm TAKE 1 EACH ORAL NEEDED 3 TIMES A DAY Mirtazapine 30MG Oral Tablet 02/16/2021 Unknown ORAL AT BEDTIM E 30 MILLIGRA MS 453866 RxNorm TAKE 30 MILLIGRAMS ORAL AT BEDTIME Nitroglycerin 0.4MG/1SPRAY Sublingual [place] 02/16/2021 Unknown SUBLINGUAL DIRECT ED 1 unit(s) 196607 RxNorm PLACE 1 EACH SUBLINGUAL DIRECTED Pantoprazole Sodium 40 MG Oral Tablet, Delayed Release 02/16/2021 Unknown ORAL ONCE A DAY 40 MG 812088 RxNorm TAKE 40 MG ORAL ONCE A DAY Pravastatin Sodium 40MG Oral Tablet 02/16/2021 Unknown ORAL AT BEDTIM E 40 MILLIGRA MS 354837 RxNorm TAKE 40 MILLIGRAMS ORAL AT BEDTIME Primidone 50MG Oral Tablet 02/16/2021 Unknown ORAL AT BEDTIM E 50 MILLIGRA MS 258533 RxNorm TAKE 50 MILLIGRAMS ORAL AT BEDTIME Tamsulosin HCl 0.4MG Oral Capsule 02/16/2021 Unknown ORAL ONCE A DAY 0.4 MILLIGRA MS 648282 RxNorm TAKE 0.4 MILLIGRAMS ORAL ONCE A DAY Ventolin HFA 0.09MG/1Actuation Inhalation Suspension 02/16/2021 Unknown INHALATION DIRECT ED 1 unit(s) 224014 RxNorm 1 EACH INHALATION DIRECTED amLODIPine Besylate 5MG Oral Tablet 02/16/2021 Unknown ORAL TWICE A DAY 1.5 TABLET 092634 RxNorm TAKE 1.5 TABLET ORAL TWICE A [...] Date Status Code Code System SOB active 852013988 SNOMED-CT LABORATORY TEST RESULT ABNORMAL active 485180638 SNOMED-CT Allergies and Adverse Reactions Allergy Substance Reaction Severity Start Date Concern Status Code Code System CONTRAST MEDIA, IODINE RELATED Hives (SNOMED-CT: 814751375) Moderate 02/20/2020 Active 071812003 SNOMED-CT Plan of Treatment Song Follow Up Visit 11/13/2024 MRI Abdomen WWO Contrast (65340) 2024 Song Follow Up Visit 05/14/2025 Encounters Encounter Diagnosis Start Date Code Code Sys tem Chronic obstructive lung disease 10/02/2023 62402592 SNOMED-CT Personal Care Team Section Performer Name Performer Role Active Date Inactive Jose Yanez PCP - Primary care physician 2021-11-29 2023-07-31 Karel Nathan PCP - Primary care physician 2023-09-24
--- OUTSIDE RECORDS SUMMARY | 2025-02-23 14:09 | XMS_ITS ---
Author Organization Unknown Address [place], [place] [phone] Phone Care Team Providers Care Furnace Process Plant Operator Name Role Phone FLAVIO KEEN Attending Unavailable Immunization Immunization Date Status Additional [...] COMPREHENSIVE METABOLIC PANE L - Collect Date/Time: 10/15/2024 14:13 [facility] ID: [id number] [place], [place], [id number] LOINC: 47392-4 Test Value Unit Reference Range Code Code System Flag FASTING NO BUN 11 mg/dL L=7 H=20 3094-0 LOINC CREATININE 0.90 mg/dL L=0.66 H=1.25 2160-0 LOINC GLUCOSE 74 mg/dL L=74 H=106 2345-7 LOINC SODIUM 138 mmol/L L=132 H=144 2951-2 LOINC POTASSIUM 4.0 mmol/L L=3.5 H=5.1 2823-3 LOINC CHLORIDE 93 mmol/L L=98 H=107 2075-0 LOINC L CO2 35.0 mmol/L L=22.0 H=30.0 2028-9 LOINC H ANION GAP 14 L=10 H=20 97403-8 LOINC OSMOLALITY 284 mOs/kG L=280 H=296 58567-9 LOINC BUN/CREAT 12.2 3097-3 LOINC CALCIUM 9.9 mg/dL L=8.3 H=10.5 83540-1 LOINC AST 23 U/L L=15 H=46 1920-8 LOINC ALT 18 U/L L=9 H=72 1742-6 LOINC ALKALINE PHOS 100 U/L L=38 H=126 6768-6 LOINC TOTAL BILI 0.3 mg/dL L=0.2 H=1.3 1975-2 LOINC ALBUMIN 4.0 G/dL L=3.5 H=5.0 1751-7 LOINC TOTAL PROTEIN 7.6 g/L L=6.3 H=8.2 2885-2 LOINC A/G RATIO 1.1 63520-2 LOINC AGE 69 85088-2 LOINC eGFR NON-AFR 89 ml/min eGFR AFR AMER 108 ml/min MEDICAL PROFESSIONAL PROFILE (11) - Collect Date/Time: 10/15/2024 14:13 [facility] ID: [id number] [address] [place] [address], [id number] LOINC: Test Value Unit Reference Range Code Code System Flag Creatinine 68.8 20.0-300.0 2161-8 LOINC Amphetamines, Urine Negative Cvmbig=3987 15345-6 LOINC Barbiturate See Final Results Ijmsyj=203 3377-9 LOINC Benzodiazepines Negative Amooqx=712 29456-6 LOINC Cannabinoids See Final Results Cutoff=20 93462-4 LOINC Cocaine (Metabolite) Negative Xnqocp=859 3393-6 LOINC Ethanol, Urine Negative Cutoff=0.020 5645-7 LOINC Meperidine Negative Aqutbj=910 3746-5 LOINC Methadone Negative Chhosw=715 3773-9 LOINC Opiates See Final Results Dkaawc=188 94049-5 LOINC Oxycodone/Oxymorphone, Urine Negative Smhonx=198 58657-5 LOINC Phencyclidine Negative Cutoff=25 3936-2 LOINC Propoxyphene Negative Eezomp=860 67571-2 LOINC Opiates WILL FOLLOW 88571-1 LOINC Codeine WILL FOLLOW 3507-1 LOINC Codeine Conf, MS, UR WILL FOLLOW 29954-3 LOINC Morphine WILL FOLLOW 3830-7 LOINC Morphine Conf, MS, UR WILL FOLLOW 59308-5 LOINC Hydromorphone WILL FOLLOW 9834-3 LOINC Hydromorphone Conf, MS,UR WILL FOLLOW 43113-2 LOINC Hydrocodone WILL FOLLOW 42274-3 LOINC Hydrocodone Conf, MS, UR WILL FOLLOW 92221-7 LOINC Cannabinoid WILL FOLLOW 32857-4 LOINC Carboxy THC Conf, MS, UR WILL FOLLOW 59121-3 LOINC Cannabinoid Positive Cutoff=20 67695-2 LOINC A Carboxy THC Conf, MS, UR >750 Cutoff=10 43095-8 LOINC Opiates Positive Axdizz=770 15580-1 LOINC A Codeine Negative Epwsyz=048 3507-1 LOINC Morphine Negative Spqakj=085 3830-7 LOINC Hydromorphone Negative Xnjffu=958 9834-3 LOINC Hydrocodone Positive 02799-3 LOINC A Hydrocodone Conf, MS, UR 564 Zfsayu=518 31644-0 LOINC Barbiturates Positive Pvmsap=732 3377-9 LOINC A Amobarbital Negative Wmxysz=418 3339-9 LOINC Secobarbital Negative Zznxnl=034 4029-5 LOINC Butalbital Negative Xskjhj=553 3421-5 LOINC Pentobarbital Negative Fohjwy=986 3925-5 LOINC Phenobarbital Positive 3949-5 LOINC A LIPID PANEL - Collect Date/T chanel: 10/15/2024 14:13 [facility] ID: [id number] [address] [place], [place], [id number] LOINC: 61544-2 Test Value Unit Reference Range Code Code System Flag FASTING NO CHOLESTEROL 139 mg/dL L=0 H=200 2092-3 LOINC TRIGLYCERIDE 128 mg/dL L=0 H=150 1-8 LOINC HDL 49 mg/dL L=40 H=60 2084-9 LOINC LDL 63 mg/dL 2088- LOINC Social History Type Status Start Date End Date Code Code Syst em Smoking History Current every day smoker 565321850 SNOMED CT Smoking History Unknown if ever smoked [address] Sex Male Medications Medication Start Date End Date Route Frequency Dose Code Code System Medication Instructions Home Meds Advair Diskus 250/50 0.25MG-0.05MG/1INH Inhalation Disk 02/16/2021 Unknown INHALATION EVERY 12 HOURS 1 unit(s) 913473 RxNorm 1 EACH INHALATION EVERY 12 HOURS Calcium Carbonate with Vitamin D 600MG-200IU Oral Tablet 02/16/2021 Unknown ORAL TWICE A DAY 2 TABLET RxNorm TAKE 2 TABLET ORAL TWICE A DAY DULoxetine HCl 60MG Oral Capsule, Delayed Release 02/16/2021 Unknown ORAL ONCE A DAY 60 MILLIGRA MS 940123 RxNorm TAKE 60 MILLIGRAMS ORAL ONCE A DAY Donepezil HCl 5MG Oral Tablet 02/16/2021 Unknown ORAL AT BEDTIM E 5 MILLIGRA MS 981434 RxNorm TAKE 5 MILLIGRAMS ORAL AT BEDTIME Eliquis 5MG Oral Tablet 02/16/2021 Unknown ORAL TWICE A DAY 5 MILLIGRA MS 7867507 RxNorm TAKE 5 MILLIGRAMS ORAL TWICE A DAY Gabapentin 600MG Oral Tablet 02/16/2021 Unknown ORAL THREE TIMES A DAY 600 MILLIGRA MS 501533 RxNorm TAKE 600 MILLIGRAMS ORAL THREE TIMES A DAY HYDROcodone bitartrate-acetamin ophen 5MG-325MG Oral Tablet 02/16/2021 Unknown ORAL NEEDED 3 TIMES A DAY 1 unit(s) 635764 RxNorm TAKE 1 EACH ORAL NEEDED 3 TIMES A DAY Mirtazapine 30MG Oral Tablet 02/16/2021 Unknown ORAL AT BEDTIM E 30 MILLIGRA MS 126521 RxNorm TAKE 30 MILLIGRAMS ORAL AT BEDTIME Nitroglycerin 0.4MG/1SPRAY Sublingual [place] 02/16/2021 Unknown SUBLINGUAL DIRECT ED 1 unit(s) 451606 RxNorm PLACE 1 EACH SUBLINGUAL DIRECTED Pantoprazole Sodium 40 MG Oral Tablet, Delayed Release 02/16/2021 Unknown ORAL ONCE A DAY 40 MG 014918 RxNorm TAKE 40 MG ORAL ONCE A DAY Pravastatin Sodium 40MG Oral Tablet 02/16/2021 Unknown ORAL AT BEDTIM E 40 MILLIGRA MS 793181 RxNorm TAKE 40 MILLIGRAMS ORAL AT BEDTIME Primidone 50MG Oral Tablet 02/16/2021 Unknown ORAL AT BEDTIM E 50 MILLIGRA MS 784622 RxNorm TAKE 50 MILLIGRAMS ORAL AT BEDTIME Tamsulosin HCl 0.4MG Oral Capsule 02/16/2021 Unknown ORAL ONCE A DAY 0.4 MILLIGRA MS 678207 RxNorm TAKE 0.4 MILLIGRAMS ORAL ONCE A DAY Ventolin HFA 0.09MG/1Actuation Inhalation Suspension 02/16/2021 Unknown INHALATION DIRECT ED 1 unit(s) 520551 RxNorm 1 EACH INHALATION DIRECTED amLODIPine Besylate 5MG Oral Tablet 02/16/2021 Unknown ORAL TWICE A DAY 1.5 TABLET 231031 RxNorm TAKE 1.5 TABLET ORAL TWICE A [...] Date Status Code Code System SOB active 063921541 SNOMED-CT LABORATORY TEST RESULT ABNORMAL active 675993063 SNOMED-CT Allergies and Adverse Reactions Allergy Substance Reaction Severity Start Date Concern Status Code Code System CONTRAST MEDIA, IODINE RELATED Hives (SNOMED-CT: 471910542) Moderate 02/20/2020 Active 596226004 SNOMED-CT Plan of Treatment Song Follow Up Visit 11/13/2024 MRI Abdomen WWO Contrast (73998) 2024 Song Follow Up Visit 05/14/2025 Encounters Encounter Diagnosis Start Date Code Code Sys tem Mixed hyperlipidemia 10/15/2024 SNOMED- CT Personal Care Team Section Performer Name Performer Role Active Date Inactive Jose Yanez PCP - Primary care physician 2021-11-29 2023-07-31 Karel Nathan PCP - Primary care physician 2023-09-24
--- OUTSIDE RECORDS SUMMARY | 2025-02-23 14:09 | XMS_ITS ---
Author Organization Unknown Address [address] [place] [phone] Phone Care Team Providers Care Dairy Farm Worker Name Role Phone SYLVIA ROMAN Attending Unavailable [...] em Smoking History Current every day smoker [id number] SNOMED CT Smoking History Unknown if ever smoked [address] Sex Male Medications Medication Start Date End Date Route Frequency Dose Code Code System Medication Instructions Home Meds Advair Diskus 250/50 0.25MG-0.05MG/1INH Inhalation Disk 02/16/2021 Unknown INHALATION EVERY 12 HOURS 1 unit(s) 555580 RxNorm 1 EACH INHALATION EVERY 12 HOURS Calcium Carbonate with Vitamin D 600MG-200IU Oral Tablet 02/16/2021 Unknown ORAL TWICE A DAY 2 TABLET RxNorm TAKE 2 TABLET ORAL TWICE A DAY DULoxetine HCl 60MG Oral Capsule, Delayed Release 02/16/2021 Unknown ORAL ONCE A DAY 60 MILLIGRA MS 184325 RxNorm TAKE 60 MILLIGRAMS ORAL ONCE A DAY Donepezil HCl 5MG Oral Tablet 02/16/2021 Unknown ORAL AT BEDTIM E 5 MILLIGRA MS 155615 RxNorm TAKE 5 MILLIGRAMS ORAL AT BEDTIME Eliquis 5MG Oral Tablet 02/16/2021 Unknown ORAL TWICE A DAY 5 MILLIGRA MS 9480363 RxNorm TAKE 5 MILLIGRAMS ORAL TWICE A DAY Gabapentin 600MG Oral Tablet 02/16/2021 Unknown ORAL THREE TIMES A DAY 600 MILLIGRA MS 873031 RxNorm TAKE 600 MILLIGRAMS ORAL THREE TIMES A DAY HYDROcodone bitartrate-acetamin ophen 5MG-325MG Oral Tablet 02/16/2021 Unknown ORAL NEEDED 3 TIMES A DAY 1 unit(s) 864838 RxNorm TAKE 1 EACH ORAL NEEDED 3 TIMES A DAY Mirtazapine 30MG Oral Tablet 02/16/2021 Unknown ORAL AT BEDTIM E 30 MILLIGRA MS 843868 RxNorm TAKE 30 MILLIGRAMS ORAL AT BEDTIME Nitroglycerin 0.4MG/1SPRAY Sublingual [place] 02/16/2021 Unknown SUBLINGUAL DIRECT ED 1 unit(s) 670254 RxNorm PLACE 1 EACH SUBLINGUAL DIRECTED Pantoprazole Sodium 40 MG Oral Tablet, Delayed Release 02/16/2021 Unknown ORAL ONCE A DAY 40 MG 038126 RxNorm TAKE 40 MG ORAL ONCE A DAY Pravastatin Sodium 40MG Oral Tablet 02/16/2021 Unknown ORAL AT BEDTIM E 40 MILLIGRA MS 467534 RxNorm TAKE 40 MILLIGRAMS ORAL AT BEDTIME Primidone 50MG Oral Tablet 02/16/2021 Unknown ORAL AT BEDTIM E 50 MILLIGRA MS 755081 RxNorm TAKE 50 MILLIGRAMS ORAL AT BEDTIME Tamsulosin HCl 0.4MG Oral Capsule 02/16/2021 Unknown ORAL ONCE A DAY 0.4 MILLIGRA MS 910089 RxNorm TAKE 0.4 MILLIGRAMS ORAL ONCE A DAY Ventolin HFA 0.09MG/1Actuation Inhalation Suspension 02/16/2021 Unknown INHALATION DIRECT ED 1 unit(s) 387000 RxNorm 1 EACH INHALATION DIRECTED amLODIPine Besylate 5MG Oral Tablet 02/16/2021 Unknown ORAL TWICE A DAY 1.5 TABLET 036630 RxNorm TAKE 1.5 TABLET ORAL TWICE A [...] Date Status Code Code System SOB active 781120607 SNOMED-CT LABORATORY TEST RESULT ABNORMAL active 458407189 SNOMED-CT Allergies and Adverse Reactions Allergy Substance Reaction Severity Start Date Concern Status Code Code System CONTRAST MEDIA, IODINE RELATED Hives (SNOMED-CT: 769082252) Moderate 02/20/2020 Active 212005272 SNOMED-CT Plan of Treatment Song Follow Up Visit 11/13/2024 MRI Abdomen WWO Contrast ([id number]) 2024 Song Follow Up Visit 05/14/2025 Encounters Encounter Diagnosis Start Date Code Code Sys tem Spinal stenosis, lumbar antonio on without neurogenic claudication 09/24/2023 SNOMED-CT Personal Care Team Section Performer Name Performer Role Active Date Inactive Jose Yanez PCP - Primary care physician 2021-11-29 2023-07-31 Karel Nathan PCP - Primary care physician 2023-09-24
--- OUTSIDE RECORDS SUMMARY | 2025-02-23 14:09 | XMS_ITS ---
Author Organization Unknown Address [place], [place] [phone] Phone Care Team Providers Care Machine Operator Hop Picker Name Role Phone FLAVIO KEEN Attending Unavailable [...] mcg/0.25mL dose 08/23/2021 Completed 207 CVX Results BUN/CREAT - Collect Date/Neil e: 05/13/2024 13:07 [facility] ID: [id number] [place], [place], [id number] LOINC: 3097-3 Test Value Unit Reference Range Code Code System Flag BUN 9 mg/dL L=7 H=20 3094-0 LOINC CREATININE 1.20 mg/dL L=0.66 H=1.25 2160-0 LOINC AGE 69 88204-4 LOINC eGFR NON-AFR 64 ml/min eGFR AFR AMER 77 ml/min MRI ABDOMEN W+WO CONTRAST - Completed: 05/13/2024 13:32 LOINC: EXAM DESCRIPTION: MRI ABDOMEN W+WO CONTRAST REASON FOR STUDY: Adrenal protocol MRI w/wo contrast. Incidental finding/tracking of 3.0cm left adrenal nodule, which had been stable for several years prior, enlarged from 2.3cm over the past year; patient denies any relatable symptoms. No traumatic incidents noted. Duration: Tracking left adrenal nodule since, at least, 2018. 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 Cancer History: Treatment: SURGICAL EXCISION, ONLY. TECHNIQUE: MRI of the abdomen performed without and with intravenous contrast according to the adrenal protocol. All images stored on PACS. CONTRAST TYPE/DOSE: 15ml of PROHANCE injected via LEFT A.C. W/22GA ANGIOCATH. COMPARISON: 03/02/2024 FINDINGS: LOWER CHEST: The heart size is upper limits of normal. There is no definite evidence of a pericardial effusion. Postsurgical changes involving the abdominal aorta with an aorto bi-iliac stent graft are partially visualized. The visualized lung bases are grossly clear. There is small hiatal hernia. LIVER: There is mild diffuse hepatic steatosis. There are scattered small cysts noted in the liver with the largest measuring up to 1.1 cm in the anterior left hepatic lobe, which is bilobed. There is no definite evidence of a suspicious arterial enhancing or washout hepatic lesion. The hepatic and portal veins are grossly patent. GALLBLADDER: There is no definite MRI evidence of cholelithiasis, gallbladder wall thickening, or pericholecystic fluid. BILE DUCTS: There is mild central intrahepatic and extrahepatic biliary ductal dilatation with the common bile duct measuring up to 1.1 cm, which is similar to prior CT dated 02/05/2020, and therefore chronic possibly due to mass effect from the large duodenal diverticula. SPLEEN: The spleen is grossly normal in size and unremarkable. PANCREAS: The pancreas appears grossly unremarkable without definite evidence of pancreatic ductal dilatation, peripancreatic inflammatory changes, or peripancreatic fluid collection. ADRENALS: The right adrenal gland is grossly stable and unremarkable. There is redemonstration of the left adrenal nodule measuring 2.9 cm demonstrating heterogeneously hyperintense and hypointense T2 signal, hyperintense T1 signal on the precontrast sequence, and no definite evidence of enhancement on the postcontrast sequences. This nodule measured 2.[address] dated 02/05/2020, and demonstrated attenuation characteristics compatible with benign adrenal adenoma. Given the increase in size of the nodule with internal hyperintense T1 signal and lack of enhancement, findings may represent sequela of adrenal hemorrhage within a benign adrenal adenoma. KIDNEYS/URINARY TRACT: The kidneys are grossly symmetrical in size. The bilateral kidneys enhance symmetrically. There is no definite evidence of hydronephrosis. There is a cystic lesion in the lateral interpolar region of the left kidney measuring 1.8 cm demonstrating isointense T1 signal on the precontrast sequence with a focus of hyperintense T1 signal in the dependent portion with mild persistent hypointense T1 signal on the post-contrast sequence, which does not completely subtract out on the post-contrast subtraction sequences, and therefore concerning for a Bosniak 2 F lesion (axial T1 precontrast image 48). There is a cystic lesion noted in the interpolar region of the right kidney measuring 1.2 cm containing a few thin enhancing septations, and therefore compatible with Bosniak 2 F lesion (axial T2 image 27). There are multiple additional simple appearing cysts noted in the bilateral kidneys with largest measuring 0.8 cm on the right and 1.6 cm on the left, which do not require follow-up imaging. GI: There are a couple of large duodenal diverticula noted. There are scattered colonic diverticula noted. The remainder of the visualized bowel appears grossly unremarkable. There is no definite evidence of free fluid in the abdomen. There is no definite MRI evidence of abdominal lymphadenopathy. MUSCULOSKELETAL: There are degenerative changes of the spine. There are multiple compression deformities involving thoracolumbar spine, which are better evaluated on CT dated 12/06/2020. OTHER: No other abnormality. IMPRESSION: ? ? Redemonstration of the left adrenal nodule measuring up to 3.0 cm, which previously measured up to 2.0 cm on prior studies and demonstrated attenuation characteristics compatible with benign adrenal adenoma on prior studies. Given the interval increase in size of the nodule in comparison to the prior studies along with internal hyperintense T1 signal and lack of significant enhancement, findings may represent sequela adrenal hemorrhage within a benign adrenal adenoma. Short-term follow-up MRI in 6 months is recommended to assess for stability as clinically indicated. ? ? 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 Continued attention on the aforementioned follow-up MRI is recommended as clinically indicated. ? ? Mild diffuse hepatic steatosis. ? ? Mild central intrahepatic and extrahepatic biliary ductal dilatation with the common bile duct measuring up to 1.1 cm, which is similar to prior CT dated 02/05/2020, and therefore likely chronic possibly due to mass effect from large duodenal diverticula. THIS IS AN ELECTRONICALLY VERIFIED FINAL REPORT 05/14/2024 11:39 AM - Electronically signed by Bharti Isbell D.O. PS: PS Report ID: [id number] Reading Location: [place] [address] Social History Type Status Start Date End Date Code Code Syst em Smoking History Current every day smoker 864058822 SNOMED CT Smoking History Unknown if ever smoked [address] Sex Male Medications Medication Start Date End Date Route Frequency Dose Code Code System Medication Instructions Home Meds Advair Diskus 250/50 0.25MG-0.05MG/1INH Inhalation Disk 02/16/2021 Unknown INHALATION EVERY 12 HOURS 1 unit(s) 752318 RxNorm 1 EACH INHALATION EVERY 12 HOURS Calcium Carbonate with Vitamin D 600MG-200IU Oral Tablet 02/16/2021 Unknown ORAL TWICE A DAY 2 TABLET RxNorm TAKE 2 TABLET ORAL TWICE A DAY DULoxetine HCl 60MG Oral Capsule, Delayed Release 02/16/2021 Unknown ORAL ONCE A DAY 60 MILLIGRA MS 066842 RxNorm TAKE 60 MILLIGRAMS ORAL ONCE A DAY Donepezil HCl 5MG Oral Tablet 02/16/2021 Unknown ORAL AT BEDTIM E 5 MILLIGRA MS 509169 RxNorm TAKE 5 MILLIGRAMS ORAL AT BEDTIME Eliquis 5MG Oral Tablet 02/16/2021 Unknown ORAL TWICE A DAY 5 MILLIGRA MS 8344525 RxNorm TAKE 5 MILLIGRAMS ORAL TWICE A DAY Gabapentin 600MG Oral Tablet 02/16/2021 Unknown ORAL THREE TIMES A DAY 600 MILLIGRA MS 326537 RxNorm TAKE 600 MILLIGRAMS ORAL THREE TIMES A DAY HYDROcodone bitartrate-acetamin ophen 5MG-325MG Oral Tablet 02/16/2021 Unknown ORAL NEEDED 3 TIMES A DAY 1 unit(s) 869055 RxNorm TAKE 1 EACH ORAL NEEDED 3 TIMES A DAY Mirtazapine 30MG Oral Tablet 02/16/2021 Unknown ORAL AT BEDTIM E 30 MILLIGRA MS 294332 RxNorm TAKE 30 MILLIGRAMS ORAL AT BEDTIME Nitroglycerin 0.4MG/1SPRAY Sublingual [place] 02/16/2021 Unknown SUBLINGUAL DIRECT ED 1 unit(s) 122630 RxNorm PLACE 1 EACH SUBLINGUAL DIRECTED Pantoprazole Sodium 40 MG Oral Tablet, Delayed Release 02/16/2021 Unknown ORAL ONCE A DAY 40 MG 028481 RxNorm TAKE 40 MG ORAL ONCE A DAY Pravastatin Sodium 40MG Oral Tablet 02/16/2021 Unknown ORAL AT BEDTIM E 40 MILLIGRA MS 794416 RxNorm TAKE 40 MILLIGRAMS ORAL AT BEDTIME Primidone 50MG Oral Tablet 02/16/2021 Unknown ORAL AT BEDTIM E 50 MILLIGRA MS 336025 RxNorm TAKE 50 MILLIGRAMS ORAL AT BEDTIME Tamsulosin HCl 0.4MG Oral Capsule 02/16/2021 Unknown ORAL ONCE A DAY 0.4 MILLIGRA MS 097852 RxNorm TAKE 0.4 MILLIGRAMS ORAL ONCE A DAY Ventolin HFA 0.09MG/1Actuation Inhalation Suspension 02/16/2021 Unknown INHALATION DIRECT ED 1 unit(s) 560549 RxNorm 1 EACH INHALATION DIRECTED amLODIPine Besylate 5MG Oral Tablet 02/16/2021 Unknown ORAL TWICE A DAY 1.5 TABLET 681131 RxNorm TAKE 1.5 TABLET ORAL TWICE A [...] Date Status Code Code System SOB active 953208640 SNOMED-CT LABORATORY TEST RESULT ABNORMAL active 093070331 SNOMED-CT Allergies and Adverse Reactions Allergy Substance Reaction Severity Start Date Concern Status Code Code System CONTRAST MEDIA, IODINE RELATED Hives (SNOMED-CT: 314723268) Moderate 02/20/2020 Active 982096027 SNOMED-CT Plan of Treatment Song Follow Up Visit 11/13/2024 MRI Abdomen WWO Contrast (17634) 2024 Song Follow Up Visit 05/14/2025 Encounters Encounter Diagnosis Start Date Code Code Sys tem Disorder of adrenal gland, unspecified 05/13/2024 SNOMED-CT Personal Care Team Section Performer Name Performer Role Active Date Inactive Da oleksandr Nathan PCP - Primary care physician 2021-11-29 2023-07-31 Karel Nathan PCP - Primary care physician 2023-09-24 Imaging Narrative Notes
--- OUTSIDE RECORDS SUMMARY | 2025-02-23 14:10 | XMS_ITS ---
Author Organization Unknown Address [place], [place] [id number] Phone Care Team Providers Care Fire Technology Instructor Name Role Phone FLAVIO KEEN Attending Unavailable [...] mcg/0.25mL dose 08/23/2021 Completed 207 CVX Results LIPID PANEL - Collect Date/T chanel: 04/09/2024 13:39 [facility] ID: [id number] [place], [id number] LOINC: 48656-1 Test Value Unit Reference Range Code Code System Flag FASTING NO CHOLESTEROL 164 mg/dL L=0 H=200 3-3 LOINC TRIGLYCERIDE 131 mg/dL L=0 H=150 2571-8 LOINC HDL 59 mg/dL L=40 H=60 2084-9 LOINC LDL 84 mg/dL 2088-1 LOINC COMPREHENSIVE METABOLIC PANE L - Collect Date/Time: 04/09/2024 13:39 [facility] ID: [id number] [address] [place], [place], [id number] LOINC: 33817-0 Test Value Unit Reference Range Code Code System Flag FASTING NO BUN 10 mg/dL L=7 H=20 3094-0 LOINC CREATININE 0.80 mg/dL L=0.66 H=1.25 2160-0 LOINC GLUCOSE 83 mg/dL L=74 H=106 2345-7 LOINC SODIUM 140 mmol/L L=132 H=144 2951-2 LOINC POTASSIUM 4.1 mmol/L L=3.5 H=5.1 2823-3 LOINC CHLORIDE 95 mmol/L L=98 H=107 2075-0 LOINC L CO2 37.0 mmol/L L=22.0 H=30.0 8-9 LOINC H ANION GAP 12 L=10 H=20 53342-1 LOINC OSMOLALITY 288 mOs/kG L=280 H=296 44330-7 LOINC BUN/CREAT 12.5 3097-3 LOINC CALCIUM 10.1 mg/dL L=8.3 H=10.5 30122-1 LOINC AST 26 U/L L=15 H=46 1920-8 LOINC ALT 17 U/L L=9 H=72 1742-6 LOINC ALKALINE PHOS 110 U/L L=38 H=126 6768-6 LOINC TOTAL BILI 0.5 mg/dL L=0.2 H=1.3 1975-2 LOINC ALBUMIN 4.2 G/dL L=3.5 H=5.0 1751-7 LOINC TOTAL PROTEIN 8.0 g/L L=6.3 H=8.2 2885-2 LOINC A/G RATIO 1.1 43552-4 LOINC AGE 69 66501-0 LOINC eGFR NON-AFR 102 ml/min eGFR AFR AMER 123 ml/min CBC W/ DIFF - Collect Date/T chanel: 04/09/2024 13:39 [facility] ID: [id number] [address] [place], [place], [id number] LOINC: 74385-8 Test Value Unit Reference Range Code Code System Flag WBC 12.0 10^3uL L=4.8 H=10.8 H RBC 4.78 10^6uL L=4.60 H=6.20 HEMOGLOBIN 13.8 g/dL L=14.0 H=18.0 718-7 LOINC L HEMATOCRIT 45.5 VOL% L=42.0 H=52.0 4544-3 LOINC MCV 95.2 fL L=80.0 H=94.0 H MCH 28.9 pg L=27.0 H=32.0 MCHC 30.3 g/dL L=32.0 H=36.0 L PLATELETS 324 10^3uL L=100 H=400 98298-3 LOINC RDW 13.9 % L=11.7 H=15.5 %GRAN 51.7 % L=40.0 H=70.0 95553-5 LOINC %LYMPH 35.0 % L=20.0 H=45.0 736-9 LOINC %MONO 9.4 % L=2.0 H=10.0 47972-7 LOINC %EOS 2.1 % L=0.0 H=6.0 713-8 LOINC %BASO 0.9 % L=0.0 H=3.0 706-2 LOINC #NEUT 6.2 10^3uL L=1.9 H=7.6 75596-4 LOINC #LYMPH 4.2 10^3uL L=0.9 H=4.9 46598-4 LOINC #MONO 1.1 10^3uL L=0.1 H=0.9 39008-0 LOINC H #EOS 0.3 10^3uL L=0.0 H=0.6 712-0 LOINC #BASO 0.11 10^3uL L=0.00 H=0.10 32331-0 LOINC H #IM GRANS 0.1 10^3uL L=0.0 H=7.0 44487-7 LOINC %IM GRANS 0.9 % L=0.0 H=5.0 94539-4 LOINC %NRB 0.0 L=0.0 H=0.2 83742-4 LOINC #NRB 0.000 L=0.000 H=0.012 65350-9 LOINC MANUAL DIFF NOT INDICATED RBC MORPH NOT INDICATED TSH / REFLEX FT4 - Collect D ate/Time: 04/09/2024 13:39 [facility] ID: [id number] [address] [place] [address], [phone] LOINC: Test Value Unit Reference Range Code Code System Flag TSH 0.884 uIU/L L=0.470 H=4.680 78018-4 LOINC PSA-SCREENING - Collect Date /Time: 04/09/2024 13:39 [facility] ID: [id number] [address] [place] [address], [phone] LOINC: 2857-1 Test Value Unit Reference Range Code Code System Flag PSA SCREEN 0.5 ng/mL L=0.0 H=4.0 2857-1 LOINC Social History Type Status Start Date End Date Code Code Syst em Smoking History Current every day smoker 875178691 SNOMED CT Smoking History Unknown if ever smoked [address] Sex Male Medications Medication Start Date End Date Route Frequency Dose Code Code System Medication Instructions Home Meds Advair Diskus 250/50 0.25MG-0.05MG/1INH Inhalation Disk 02/16/2021 Unknown INHALATION EVERY 12 HOURS 1 unit(s) 168693 RxNorm 1 EACH INHALATION EVERY 12 HOURS Calcium Carbonate with Vitamin D 600MG-200IU Oral Tablet 02/16/2021 Unknown ORAL TWICE A DAY 2 TABLET RxNorm TAKE 2 TABLET ORAL TWICE A DAY DULoxetine HCl 60MG Oral Capsule, Delayed Release 02/16/2021 Unknown ORAL ONCE A DAY 60 MILLIGRA MS 358133 RxNorm TAKE 60 MILLIGRAMS ORAL ONCE A DAY Donepezil HCl 5MG Oral Tablet 02/16/2021 Unknown ORAL AT BEDTIM E 5 MILLIGRA MS 622843 RxNorm TAKE 5 MILLIGRAMS ORAL AT BEDTIME Eliquis 5MG Oral Tablet 02/16/2021 Unknown ORAL TWICE A DAY 5 MILLIGRA MS 7739788 RxNorm TAKE 5 MILLIGRAMS ORAL TWICE A DAY Gabapentin 600MG Oral Tablet 02/16/2021 Unknown ORAL THREE TIMES A DAY 600 MILLIGRA MS 935008 RxNorm TAKE 600 MILLIGRAMS ORAL THREE TIMES A DAY HYDROcodone bitartrate-acetamin ophen 5MG-325MG Oral Tablet 02/16/2021 Unknown ORAL NEEDED 3 TIMES A DAY 1 unit(s) 127950 RxNorm TAKE 1 EACH ORAL NEEDED 3 TIMES A DAY Mirtazapine 30MG Oral Tablet 02/16/2021 Unknown ORAL AT BEDTIM E 30 MILLIGRA MS 087528 RxNorm TAKE 30 MILLIGRAMS ORAL AT BEDTIME Nitroglycerin 0.4MG/1SPRAY Sublingual [place] 02/16/2021 Unknown SUBLINGUAL DIRECT ED 1 unit(s) 051659 RxNorm PLACE 1 EACH SUBLINGUAL DIRECTED Pantoprazole Sodium 40 MG Oral Tablet, Delayed Release 02/16/2021 Unknown ORAL ONCE A DAY 40 MG 902993 RxNorm TAKE 40 MG ORAL ONCE A DAY Pravastatin Sodium 40MG Oral Tablet 02/16/2021 Unknown ORAL AT BEDTIM E 40 MILLIGRA MS 023053 RxNorm TAKE 40 MILLIGRAMS ORAL AT BEDTIME Primidone 50MG Oral Tablet 02/16/2021 Unknown ORAL AT BEDTIM E 50 MILLIGRA MS 786961 RxNorm TAKE 50 MILLIGRAMS ORAL AT BEDTIME Tamsulosin HCl 0.4MG Oral Capsule 02/16/2021 Unknown ORAL ONCE A DAY 0.4 MILLIGRA MS 960014 RxNorm TAKE 0.4 MILLIGRAMS ORAL ONCE A DAY Ventolin HFA 0.09MG/1Actuation Inhalation Suspension 02/16/2021 Unknown INHALATION DIRECT ED 1 unit(s) 361404 RxNorm 1 EACH INHALATION DIRECTED amLODIPine Besylate 5MG Oral Tablet 02/16/2021 Unknown ORAL TWICE A DAY 1.5 TABLET 864508 RxNorm TAKE 1.5 TABLET ORAL TWICE A [...] Date Status Code Code System SOB active 677382696 SNOMED-CT LABORATORY TEST RESULT ABNORMAL active 597126252 SNOMED-CT Allergies and Adverse Reactions Allergy Substance Reaction Severity Start Date Concern Status Code Code System CONTRAST MEDIA, IODINE RELATED Hives (SNOMED-CT: 725561814) Moderate 02/20/2020 Active 445951512 SNOMED-CT Plan of Treatment Song Follow Up Visit 11/13/2024 MRI Abdomen WWO Contrast (47819) 2024 Song Follow Up Visit 05/14/2025 Encounters Encounter Diagnosis Start Date Code Code Sys tem Mixed hyperlipidemia 04/09/2024 SNOMED- CT Personal Care Team Section Performer Name Performer Role Active Date Inactive Da oleksandr Nathan PCP - Primary care physician 2021-11-29 2023-07-31 Karel Nathan PCP - Primary care physician 2023-09-24
--- OUTSIDE RECORDS SUMMARY | 2025-02-23 14:10 | XMS_ITS ---
Author Organization Unknown Address [place], [place] [id number] Phone Care Team Providers Care Yard Attendant Name Role Phone SYLVIA ROMAN Attending Unavailable [...] mcg/0.25mL dose 08/23/2021 Completed [address] CHEST/LUNG WO CONTRAST - Completed: 09/16/2024 15:36 LOINC: \TM00\\10PI\\DRAo\\BM09\ \MRLo\ [address] [address] ---------NAME--------- NUMBER SEX AGE ADMIT DISC. XRAY# F/C TYPE ROZ KIM [id number] M 69 09/16/24 09/16/24 69669 MB O/P DATE OF : 1955 M/R# [id number] #: [id number] \MRHx\ LOCATION: TRANSCRIBED: 09/16/24 15:45 CT CHEST/LUNG WO CONTRAST 15215 COMPLETED:09/16/24 15:36 [facility] 81417 {REASON-CT/MRI CHEST: PULM NODULE(OTHER LUNG DIS) PHYSICIAN: SYLVIA BIRD R A D I O L O G Y R E P O R T Procedure: CT CHEST/LUNG WO CONTRAST Reason for study/Clinical History: Pulmonary nodules. Comparison Study: None. Exam Date: 09/16/2024 01:51 PM TECHNIQUE: Multidetector CT of the chest was performed from the lung apices to the upper abdomen without the use of intravenous contract. Axial, coronal and sagittal multiplanar reformats were performed. Radiation Dose Information: CT Dose: CTDI volume is 15.12 mGy. Dose-length product is 554.08 mGy*cm The dose indicators for CT are the volume Computed Tomography (CT) Dose Index (CTDIvol) and the Dose Length Product (DLP), and are measured in units of mGy and mGy-cm, respectively. These indicators are not patient dose, but values generated from the CT scanner acquisition factors. The report includes radiation exposure data for exposures received during this examination. Radiation optimization: All CT scans at this facility use at least one of these dose optimization techniques: automated exposure control mA and/or kV adjustment per patient size (includes targeted exams where dose is matched to clinical indication) or iterative reconstruction. FINDINGS Lungs/Pleura: There are moderate emphysematous changes in the lungs, right greater than left. There is stable curvilinear parenchymal scarring in the right perihilar lung. There is no lung consolidation. There is no pleural effusion or pneumothorax. There are scattered small calcified granulomas bilaterally which appear stable. There is no suspicious appearing pulmonary nodule or mass. Heart/Vascular Structures: Normal heart size. No pericardial effusion. There are coronary artery calcifications. Lymph Nodes: There are small mediastinal lymph nodes. There is no axillary lymphadenopathy. Musculoskeletal: No acute osseous abnormality. There are chronic healed left rib fractures Soft tissues: Unremarkable. Upper abdomen: There is a stable 3 cm left adrenal gland nodule. The remaining visualized solid intra-abdominal structures appear within normal limits. IMPRESSION: 1. Moderate emphysematous changes in the lungs. There is stable curvilinear parenchymal scarring in the right perihilar lung. 2. There are scattered small calcified granulomas bilaterally. There is no suspicious appearing pulmonary nodule or mass. Continued low-dose CT surveillance in 12 months is recommended. 3. Stable left adrenal gland nodule. HS:Y S [employer]ESSER [employer] \ITLo\ \UNDo\ \UNDx\ \ITLx\ Reviewed and Electronically Signed by: Thien Howell MD Signed Date: 09/16/24 15:45 09/16/24.1548.[facility].to FLAVIO PERKINS via [employer] Social History Type Status Start Date End Date Code Code Syst em Smoking History Current every day smoker 204656769 SNOMED CT Smoking History Unknown if ever smoked [address] Sex Male Medications Medication Start Date End Date Route Frequency Dose Code Code System Medication Instructions Home Meds Advair Diskus 250/50 0.25MG-0.05MG/1INH Inhalation Disk 02/16/2021 Unknown INHALATION EVERY 12 HOURS 1 unit(s) 418420 RxNorm 1 EACH INHALATION EVERY 12 HOURS Calcium Carbonate with Vitamin D 600MG-200IU Oral Tablet 02/16/2021 Unknown ORAL TWICE A DAY 2 TABLET RxNorm TAKE 2 TABLET ORAL TWICE A DAY DULoxetine HCl 60MG Oral Capsule, Delayed Release 02/16/2021 Unknown ORAL ONCE A DAY 60 MILLIGRA MS 247027 RxNorm TAKE 60 MILLIGRAMS ORAL ONCE A DAY Donepezil HCl 5MG Oral Tablet 02/16/2021 Unknown ORAL AT BEDTIM E 5 MILLIGRA MS 275787 RxNorm TAKE 5 MILLIGRAMS ORAL AT BEDTIME Eliquis 5MG Oral Tablet 02/16/2021 Unknown ORAL TWICE A DAY 5 MILLIGRA MS 5530380 RxNorm TAKE 5 MILLIGRAMS ORAL TWICE A DAY Gabapentin 600MG Oral Tablet 02/16/2021 Unknown ORAL THREE TIMES A DAY 600 MILLIGRA MS 981211 RxNorm TAKE 600 MILLIGRAMS ORAL THREE TIMES A DAY HYDROcodone bitartrate-acetamin ophen 5MG-325MG Oral Tablet 02/16/2021 Unknown ORAL NEEDED 3 TIMES A DAY 1 unit(s) 486198 RxNorm TAKE 1 EACH ORAL NEEDED 3 TIMES A DAY Mirtazapine 30MG Oral Tablet 02/16/2021 Unknown ORAL AT BEDTIM E 30 MILLIGRA MS 762185 RxNorm TAKE 30 MILLIGRAMS ORAL AT BEDTIME Nitroglycerin 0.4MG/1SPRAY Sublingual [place] 02/16/2021 Unknown SUBLINGUAL DIRECT ED 1 unit(s) 508907 RxNorm PLACE 1 EACH SUBLINGUAL DIRECTED Pantoprazole Sodium 40 MG Oral Tablet, Delayed Release 02/16/2021 Unknown ORAL ONCE A DAY 40 MG 652102 RxNorm TAKE 40 MG ORAL ONCE A DAY Pravastatin Sodium 40MG Oral Tablet 02/16/2021 Unknown ORAL AT BEDTIM E 40 MILLIGRA MS 651189 RxNorm TAKE 40 MILLIGRAMS ORAL AT BEDTIME Primidone 50MG Oral Tablet 02/16/2021 Unknown ORAL AT BEDTIM E 50 MILLIGRA MS 398617 RxNorm TAKE 50 MILLIGRAMS ORAL AT BEDTIME Tamsulosin HCl 0.4MG Oral Capsule 02/16/2021 Unknown ORAL ONCE A DAY 0.4 MILLIGRA MS 829560 RxNorm TAKE 0.4 MILLIGRAMS ORAL ONCE A DAY Ventolin HFA 0.09MG/1Actuation Inhalation Suspension 02/16/2021 Unknown INHALATION DIRECT ED 1 unit(s) 324151 RxNorm 1 EACH INHALATION DIRECTED amLODIPine Besylate 5MG Oral Tablet 02/16/2021 Unknown ORAL TWICE A DAY 1.5 TABLET 684114 RxNorm TAKE 1.5 TABLET ORAL TWICE A [...] Date Status Code Code System SOB active 839405829 SNOMED-CT LABORATORY TEST RESULT ABNORMAL active 131346091 SNOMED-CT Allergies and Adverse Reactions Allergy Substance Reaction Severity Start Date Concern Status Code Code System CONTRAST MEDIA, IODINE RELATED Hives (SNOMED-CT: 324731399) Moderate 02/20/2020 Active 108999562 SNOMED-CT Plan of Treatment Song Follow Up Visit 11/13/2024 MRI Abdomen WWO Contrast (33397) 2024 Song Follow Up Visit 05/14/2025 Encounters Encounter Diagnosis Start Date Code Code Sys tem Solitary pulmonary nodule 09/16/2024 SN OMED-CT Personal Care Team Section Performer Name Performer Role Active Date Inactive Da te Karel Nathan PCP - Primary care physician 2021-11-29 2023-07-31 Karel Nathan PCP - Primary care physician 2023-09-24 Imaging Narrative Notes [facility] 09/16/2024 15:48 [facility] [address] [place] [address] ---------NAME--------- NUMBER SEX AGE ADMIT DISC. XRAY# F/C TYPE ROZ PERKINSOLD [id number] M 69 09/16/24 09/16/24 01374 MB O/P DATE OF : 1955 M/R# [id number] #: [id number] LOCATION: TRANSCRIBED: 09/16/24 15:45 CT CHEST/LUNG WO CONTRAST 14055 COMPLETED:09/16/24 15:36 [facility] [address] {REASON-CT/MRI CHEST: PULM NODULE(OTHER LUNG DIS) PHYSICIAN: SYLVIA MINGC R A D I O L O G Y R E P O R T Procedure: CT CHEST/LUNG WO CONTRAST Reason for study/Clinical History: Pulmonary nodules. Comparison Study: None. Exam Date: 09/16/2024 01:51 PM TECHNIQUE: Multidetector CT of the chest was performed from the lung apices to the upper abdomen without the use of intravenous contract. Axial, coronal and sagittal multiplanar reformats were performed. Radiation Dose Information: CT Dose: CTDI volume is 15.12 mGy. Dose-length product is 554.08 mGy*cm The dose indicators for CT are the volume Computed Tomography (CT) Dose Index (CTDIvol) and the Dose Length Product (DLP), and are measured in units of mGy and mGy-cm, respectively. These indicators are not patient dose, but values generated from the CT scanner acquisition factors. The report includes radiation exposure data for exposures received during this examination. Radiation optimization: All CT scans at this facility use at least one of these dose optimization techniques: automated exposure control mA and/or kV adjustment per patient size (includes targeted exams where dose is matched to clinical indication) or iterative reconstruction. FINDINGS Lungs/Pleura: There are moderate emphysematous changes in the lungs, right greater than left. There is stable curvilinear parenchymal scarring in the right perihilar lung. There is no lung consolidation. There is no pleural effusion or pneumothorax. There are scattered small calcified granulomas bilaterally which appear stable. There is no suspicious appearing pulmonary nodule or mass. Heart/Vascular Structures: Normal heart size. No pericardial effusion. There are coronary artery calcifications. Lymph Nodes: There are small mediastinal lymph nodes. There is no axillary lymphadenopathy. Musculoskeletal: No acute osseous abnormality. There are chronic healed left rib fractures Soft tissues: Unremarkable. Upper abdomen: There is a stable 3 cm left adrenal gland nodule. The remaining visualized solid intra-abdominal structures appear within normal limits. IMPRESSION: 1. Moderate emphysematous changes in the lungs. There is stable curvilinear parenchymal scarring in the right perihilar lung. 2. There are scattered small calcified granulomas bilaterally. There is no suspicious appearing pulmonary nodule or mass. Continued low-dose CT surveillance in 12 months is recommended. 3. Stable left adrenal gland nodule. HS:Y S [employer] Reviewed and Electronically Signed by: Thien Howell MD Signed Date: 09/16/24 15:45
--- OUTSIDE RECORDS SUMMARY | 2025-02-23 14:10 | XMS_ITS | Encounter Summary ---
Author Organization [facility] Address [address] [place] [address] Care Team Providers Care Funeral Greeter Name Role Phone Ian Melgoza MD Unavailable [phone] Tiffanie Hdz MD Unavailable Arron German MD Primary Care Provider [phone] Encounter Details Date Type Department Care Team (Late st Contact Info) Description 04/04/2020 Pre-Procedure Call [facility] Director [address] [place] [address] Guru Michael RN Social History Tobacco Use Types Packs/Day Years Used Date Smoking Tobacco: Every Day Cigarettes Smokeless Tobacco: Never Alcohol Use Standard Drinks/Week Comments No 0 (1 standard drink = 0.6 oz pur e alcohol) Sex and Gender Information Value Date Recorded Sex Assigned at Not on file Legal Sex Male 8:18 PM CDT Gender Identity Not on file Sexual Orientation Not on file COVID-19 Exposure Response Date Recorded In the last month, have you been in contact with someone who was confirmed or suspected to have Coronavirus / COVID-19? No / Unsure 04/06/2020 6:20 AM CDT documented as of this encounter Plan of Treatment Not on file documented as of this encounter Visit Diagnoses Not on filedocumented in this encounter Additional Health Concerns Infection Onset Date Last Indicated Resolved Time COVID-19 Rule Out 04/11/2020 04/11/2020 04/12/2020 10:26 PM CDT COVID-19 Rule Out 11/25/2020 11/25/2020 11/25/2020 5:45 PM CDT documented as of this encounter Care Teams Funeral Greeter Relationship Specialty Start Date End Date Tiffanie Hdz MD [address] [place] [address] PCP - Med Group - [facility] Attributed Provider 08/19/15 08/18/21 Arron German MD [address] [place] [address] PCP - General FAMILY PRACTICE 02/28/20 Ian Melgoza MD [address] [place] [address] SURGERY 02/11/18 documented as of this encounter
--- OUTSIDE RECORDS SUMMARY | 2025-02-23 14:10 | XMS_ITS ---
Author Organization Unknown Address [place], [place] [id number] Phone Care Team Providers Care Mergers And Acquisitions Attorney Name Role Phone FLAVIO KEEN Attending Unavailable [...] mcg/0.25mL dose 08/23/2021 Completed 207 CVX Results MEDICAL PROFESSIONAL PROFILE (11) - Collect Date/Time: 09/24/2023 13:[address] [facility] ID: [id number] [place], [place], [phone] LOINC: Test Value Unit Reference Range Code Code System Flag Creatinine 15.1 20.0-300.0 2161-8 LOINC L Amphetamines, Urine Negative Ogtesl=9612 38143-9 LOINC Barbiturate Negative Iypusj=604 3377-9 LOINC Benzodiazepines Negative Ywjxaq=503 05911-2 LOINC Cannabinoids See Final Results Cutoff=20 76179-0 LOINC Cocaine (Metabolite) Negative Lxvkdx=483 3393-6 LOINC Opiates Negative Baystg=366 69941-3 LOINC Oxycodone/Oxymorphone,U rine Negative Qycepi=342 72950-7 LOINC Phencyclidine Negative Cutoff=25 3936-2 LOINC Methadone Negative Szqvwb=094 3773-9 LOINC Propoxyphene Negative Euxhrn=939 71060-1 LOINC Meperidine Negative Dwmkbv=054 3746-5 LOINC Ethanol, Urine Negative Cutoff=0.020 5645-7 LOINC Cannabinoid Positive Cutoff=20 94408-0 LOINC A Carboxy THC Conf, MS, UR 336 Cutoff=10 49554-5 LOINC Specific [place] 1.0023 2965-2 LOINC Social History Type Status Start Date End Date Code Code Syst em Smoking History Current every day smoker 523275052 SNOMED CT Smoking History Unknown if ever smoked [address] Sex Male Medications Medication Start Date End Date Route Frequency Dose Code Code System Medication Instructions Home Meds Advair Diskus 250/50 0.25MG-0.05MG/1INH Inhalation Disk 02/16/2021 Unknown INHALATION EVERY 12 HOURS 1 unit(s) 386015 RxNorm 1 EACH INHALATION EVERY 12 HOURS Calcium Carbonate with Vitamin D 600MG-200IU Oral Tablet 02/16/2021 Unknown ORAL TWICE A DAY 2 TABLET RxNorm TAKE 2 TABLET ORAL TWICE A DAY DULoxetine HCl 60MG Oral Capsule, Delayed Release 02/16/2021 Unknown ORAL ONCE A DAY 60 MILLIGRA MS 578916 RxNorm TAKE 60 MILLIGRAMS ORAL ONCE A DAY Donepezil HCl 5MG Oral Tablet 02/16/2021 Unknown ORAL AT BEDTIM E 5 MILLIGRA MS 416624 RxNorm TAKE 5 MILLIGRAMS ORAL AT BEDTIME Eliquis 5MG Oral Tablet 02/16/2021 Unknown ORAL TWICE A DAY 5 MILLIGRA MS 1591067 RxNorm TAKE 5 MILLIGRAMS ORAL TWICE A DAY Gabapentin 600MG Oral Tablet 02/16/2021 Unknown ORAL THREE TIMES A DAY 600 MILLIGRA MS 136940 RxNorm TAKE 600 MILLIGRAMS ORAL THREE TIMES A DAY HYDROcodone bitartrate-acetamin ophen 5MG-325MG Oral Tablet 02/16/2021 Unknown ORAL NEEDED 3 TIMES A DAY 1 unit(s) 426198 RxNorm TAKE 1 EACH ORAL NEEDED 3 TIMES A DAY Mirtazapine 30MG Oral Tablet 02/16/2021 Unknown ORAL AT BEDTIM E 30 MILLIGRA MS 672112 RxNorm TAKE 30 MILLIGRAMS ORAL AT BEDTIME Nitroglycerin 0.4MG/1SPRAY Sublingual [place] 02/16/2021 Unknown SUBLINGUAL DIRECT ED 1 unit(s) 726319 RxNorm PLACE 1 EACH SUBLINGUAL DIRECTED Pantoprazole Sodium 40 MG Oral Tablet, Delayed Release 02/16/2021 Unknown ORAL ONCE A DAY 40 MG 264978 RxNorm TAKE 40 MG ORAL ONCE A DAY Pravastatin Sodium 40MG Oral Tablet 02/16/2021 Unknown ORAL AT BEDTIM E 40 MILLIGRA MS 180954 RxNorm TAKE 40 MILLIGRAMS ORAL AT BEDTIME Primidone 50MG Oral Tablet 02/16/2021 Unknown ORAL AT BEDTIM E 50 MILLIGRA MS 171475 RxNorm TAKE 50 MILLIGRAMS ORAL AT BEDTIME Tamsulosin HCl 0.4MG Oral Capsule 02/16/2021 Unknown ORAL ONCE A DAY 0.4 MILLIGRA MS 956085 RxNorm TAKE 0.4 MILLIGRAMS ORAL ONCE A DAY Ventolin HFA 0.09MG/1Actuation Inhalation Suspension 02/16/2021 Unknown INHALATION DIRECT ED 1 unit(s) 455053 RxNorm 1 EACH INHALATION DIRECTED amLODIPine Besylate 5MG Oral Tablet 02/16/2021 Unknown ORAL TWICE A DAY 1.5 TABLET 896173 RxNorm TAKE 1.5 TABLET ORAL TWICE A [...] Date Status Code Code System SOB active 122494148 SNOMED-CT LABORATORY TEST RESULT ABNORMAL active 046761606 CagenixOMED-CT Allergies and Adverse Reactions Allergy Substance Reaction Severity Start Date Concern Status Code Code System CONTRAST MEDIA, IODINE RELATED Hives (SNOMED-CT: 979253075) Moderate 02/20/2020 Active 746429172 SNOMED-CT Plan of Treatment Song Follow Up Visit 11/13/2024 MRI Abdomen WWO Contrast (38097) 2024 Song Follow Up Visit 05/14/2025 Encounters Encounter Diagnosis Start Date Code Code Sys tem Spinal stenosis of lumbar region 09/24/2023 85658656 SNOMED-CT Personal Care Team Section Performer Name Performer Role Active Date Inactive Da oleksandr Nathan PCP - Primary care physician 2021-11-29 2023-07-31 Karel Nathan PCP - Primary care physician 2023-09-24
--- OUTSIDE RECORDS SUMMARY | 2025-02-23 14:10 | XMS_ITS ---
Author Organization Unknown Address [place], [place] [id number] Phone Care Team Providers Care Molded Goods Operator Name Role Phone FLAVIO KEEN Attending [...] MEDICAL PROFESSIONAL PROFILE (11) - Collect Date/Time: 04/16/2024 10:22 [facility] ID: [id number] [place], [place], [id number] LOINC: Test Value Unit Reference Range Code Code System Flag Creatinine 44.7 20.0-300.0 2161-8 LOINC Amphetamines, Urine Negative Snvjma=5326 27065-8 LOINC Barbiturate Negative Kfcovy=596 3377-9 LOINC Benzodiazepines Negative Szsgie=687 48325-8 LOINC Cannabinoids See Final Results Cutoff=20 50559-0 LOINC Cocaine (Metabolite) Negative Enxqsq=255 3393-6 LOINC Opiates See Final Results Reaald=341 45140-7 LOINC Oxycodone/Oxymorphone,U rine Negative Jsrtkt=551 92331-4 LOINC Phencyclidine Negative Cutoff=25 3936-2 LOINC Methadone Negative Shrmvr=406 3773-9 LOINC Propoxyphene Negative Bqssud=240 99259-7 LOINC Meperidine Negative Xplwcz=974 3746-5 LOINC Ethanol, Urine Negative Cutoff=0.020 5645-7 LOINC Opiates WILL FOLLOW 92061-6 LOINC Codeine WILL FOLLOW 3507-1 LOINC Codeine Conf, MS, UR WILL FOLLOW 04428-4 LOINC Morphine WILL FOLLOW 3830-7 LOINC Morphine Conf, MS, UR WILL FOLLOW 84960-3 LOINC Hydromorphone WILL FOLLOW 9834-3 LOINC Hydromorphone Conf, MS,UR WILL FOLLOW 41582-5 LOINC Hydrocodone WILL FOLLOW 24068-0 LOINC Hydrocodone Conf, MS, UR WILL FOLLOW 58485-5 LOINC Cannabinoid WILL FOLLOW 28116-1 LOINC Carboxy THC Conf, MS, UR WILL FOLLOW 49758-5 LOINC Cannabinoid Positive Cutoff=20 46146-1 LOINC A Carboxy THC Conf, MS, UR >750 Cutoff=10 02848-6 LOINC Opiates Negative Vensbz=114 24929-2 LOINC Social History Type Status Start Date End Date Code Code Syst em Smoking History Current every day smoker 162593419 SNOMED CT Smoking History Unknown if ever smoked [address] Sex Male Medications Medication Start Date End Date Route Frequency Dose Code Code System Medication Instructions Home Meds Advair Diskus 250/50 0.25MG-0.05MG/1INH Inhalation Disk 02/16/2021 Unknown INHALATION EVERY 12 HOURS 1 unit(s) 270988 RxNorm 1 EACH INHALATION EVERY 12 HOURS Calcium Carbonate with Vitamin D 600MG-200IU Oral Tablet 02/16/2021 Unknown ORAL TWICE A DAY 2 TABLET RxNorm TAKE 2 TABLET ORAL TWICE A DAY DULoxetine HCl 60MG Oral Capsule, Delayed Release 02/16/2021 Unknown ORAL ONCE A DAY 60 MILLIGRA MS 476137 RxNorm TAKE 60 MILLIGRAMS ORAL ONCE A DAY Donepezil HCl 5MG Oral Tablet 02/16/2021 Unknown ORAL AT BEDTIM E 5 MILLIGRA MS 768280 RxNorm TAKE 5 MILLIGRAMS ORAL AT BEDTIME Eliquis 5MG Oral Tablet 02/16/2021 Unknown ORAL TWICE A DAY 5 MILLIGRA MS 1540721 RxNorm TAKE 5 MILLIGRAMS ORAL TWICE A DAY Gabapentin 600MG Oral Tablet 02/16/2021 Unknown ORAL THREE TIMES A DAY 600 MILLIGRA MS 775578 RxNorm TAKE 600 MILLIGRAMS ORAL THREE TIMES A DAY HYDROcodone bitartrate-acetamin ophen 5MG-325MG Oral Tablet 02/16/2021 Unknown ORAL NEEDED 3 TIMES A DAY 1 unit(s) 777132 RxNorm TAKE 1 EACH ORAL NEEDED 3 TIMES A DAY Mirtazapine 30MG Oral Tablet 02/16/2021 Unknown ORAL AT BEDTIM E 30 MILLIGRA MS 530136 RxNorm TAKE 30 MILLIGRAMS ORAL AT BEDTIME Nitroglycerin 0.4MG/1SPRAY Sublingual Edison 02/16/2021 Unknown SUBLINGUAL DIRECT ED 1 unit(s) 271530 RxNorm PLACE 1 EACH SUBLINGUAL DIRECTED Pantoprazole Sodium 40 MG Oral Tablet, Delayed Release 02/16/2021 Unknown ORAL ONCE A DAY 40 MG 423886 RxNorm TAKE 40 MG ORAL ONCE A DAY Pravastatin Sodium 40MG Oral Tablet 02/16/2021 Unknown ORAL AT BEDTIM E 40 MILLIGRA MS 098304 RxNorm TAKE 40 MILLIGRAMS ORAL AT BEDTIME Primidone 50MG Oral Tablet 02/16/2021 Unknown ORAL AT BEDTIM E 50 MILLIGRA MS 704677 RxNorm TAKE 50 MILLIGRAMS ORAL AT BEDTIME Tamsulosin HCl 0.4MG Oral Capsule 02/16/2021 Unknown ORAL ONCE A DAY 0.4 MILLIGRA MS 531699 RxNorm TAKE 0.4 MILLIGRAMS ORAL ONCE A DAY Ventolin HFA 0.09MG/1Actuation Inhalation Suspension 02/16/2021 Unknown INHALATION DIRECT ED 1 unit(s) 700888 RxNorm 1 EACH INHALATION DIRECTED amLODIPine Besylate 5MG Oral Tablet 02/16/2021 Unknown ORAL TWICE A DAY 1.5 TABLET 296841 RxNorm TAKE 1.5 TABLET ORAL TWICE A [...] Date Status Code Code System SOB active 890191937 SNOMED-CT LABORATORY TEST RESULT ABNORMAL active 468903611 SNOMED-CT Allergies and Adverse Reactions Allergy Substance Reaction Severity Start Date Concern Status Code Code System CONTRAST MEDIA, IODINE RELATED Hives (SNOMED-CT: 288308578) Moderate 02/20/2020 Active 586459784 SNOMED-CT Plan of Treatment Song Follow Up Visit 11/13/2024 MRI Abdomen WWO Contrast (29504) 2024 Song Follow Up Visit 05/14/2025 Encounters Encounter Diagnosis Start Date Code Code Sys tem Spinal stenosis, lumbar antonio on without neurogenic claudication 04/16/2024 SNOMED-CT Personal Care Team Section Performer Name Performer Role Active Date Inactive Da oleksandr Nathan PCP - Primary care physician 2021-11-29 2023-07-31 Karel Nathan PCP - Primary care physician 2023-09-24
--- OUTSIDE RECORDS SUMMARY | 2025-02-23 14:10 | XMS_ITS | Encounter Summary ---
Author Organization [facility] Address [address] [place] [address] Care Team Providers Care Goldbeater Name Role Phone Rajesh Dickerson MD Primary Care Provider Unavailab Ian Schmizt MD Unavailable [phone] Tiffanie Hdz MD Unavailable Arron German MD Primary Care Provider [phone] Encounter Details Date Type Department Care Team (Late st Contact Info) Description 01/24/2019 Abstract SFL CONVERSION [address] [place] [address] , Generic ConversionMD Social History Tobacco Use Types Packs/Day Years Used Date Smoking Tobacco: Every Day Cigarettes Smokeless Tobacco: Never Alcohol Use Standard Drinks/Week Comments No 0 (1 standard drink = 0.6 oz pur e alcohol) Sex and Gender Information Value Date Recorded Sex Assigned at Not on file Legal Sex Male 8:18 PM CDT Gender Identity Not on file Sexual Orientation Not on file documented as of this encounter Plan of Treatment Not on file documented as of this encounter Visit Diagnoses Not on filedocumented in this encounter Additional Health Concerns Infection Onset Date Last Indicated Resolved Time COVID-19 Rule Out 04/11/2020 04/11/2020 04/12/2020 10:26 PM CDT COVID-19 Rule Out 11/25/2020 11/25/2020 11/25/2020 5:45 PM CDT documented as of this encounter Care Teams Goldbeater Relationship Specialty Start Date End Date Rajesh Dickerson MD PCP - General INTERNAL MEDICINE 02/11/18 02/27/20 Tiffanie Hdz MD [address] [place], [place] [address] PCP - Med Group - [facility] Attributed Provider 08/19/15 08/18/21 Arron German MD [address] [place] [address] PCP - General FAMILY PRACTICE 02/28/20 Ian Melgoza MD [address] [place], [place] [address] SURGERY 02/11/18 documented as of this encounter
--- OUTSIDE RECORDS SUMMARY | 2025-02-23 14:11 | XMS_ITS | Clinical Summary ---
Author Organization [facility] Address [address] [place] [address] Care Team Providers Care Director Of Quantitative Research Name Role Phone Ian Melgoza MD Unavailable [phone] Arron German MD Primary Care Provider [phone] Allergies Active Allergy Reactions Criticality Noted Date Comments Iodine Hives Low 08/02/2014 Red Dye #40 (Allura Red) Hives Low 02/11/2018 Tape Contact Dermatitis Low 02/11/2018 Band Aids & adhesive tape tears the skin off Medications amLODIPine 5 MG tabletIndicati ons:htn Take 1.5 tablets (7.5 mg total) by mouth 2 (two) times a day. Indications: htn 10/30/19 Active ELIQUIS 5 MG tabletIndicati ons:anticoagul ation caregiver to call office re: holding for surgery Take 1 tablet (5 mg total) by mouth 2 (two) times daily. Indications: anticoagulation caregiver to call office re: holding for surgery 11/04/19 20 Active donepezil 5 MG TabIndications :memory Take 1 tablet (5 mg total) by mouth nightly at bedtime. Indications: memory 11/04/19 20 Active gabapentin 600 MG tabletIndicati ons:nerve pain Take 1 tablet (600 mg total) by mouth 3 (three) times daily. Indications: nerve pain 10/30/19 Active mirtazapine 30 MG tabletIndicati ons:depression Take 1 tablet (30 mg total) by mouth nightly at bedtime. Indications: depression 03/03/20 Active pantoprazole EC 40 MG tabletIndicati ons:gerd Take 1 tablet (40 mg total) by mouth daily. Indications: gerd 10/30/19 Active pravastatin 40 MG tabletIndicati ons:cholestero l Take 1 tablet (40 mg total) by mouth daily. Indications: cholesterol 10/30/19 Active tamsulosin 0.4 MG CapIndications :urinary retention Take 1 capsule (0.4 mg total) by mouth daily. Indications: urinary retention 12/08/19 Active HYDROcodone-ac etaminophen 5-325 MG tabletIndicati ons:Chronic Pain Take 1 tablet by mouth 3 (three) times daily. Indications: Chronic Pain 11/11/19 Active DULoxetine 60 MG capsuleIndicat ions:depressio n Take 1 capsule (60 mg total) by mouth daily. Indications: depression 11/09/19 Active primidone 50 MG tabletIndicati ons:tremors Take 1 tablet (50 mg total) by mouth nightly at bedtime. Indications: tremors 11/09/19 Active OXYGENIndicati ons:shortness of breath 3 L/min by Nasal route continuous prn (shortness of breath). Indications: shortness of breath 12/20/19 Active hydroCHLOROthi azide 25 MG tablet 12/09/19 Active fluticasone-um eclidinium-raymnod anterol (TRELEGY) 100-62.5-25 MCG/INH AEROSOL POWDER, BREATH ACTIVATED Active Active Problems Problem Noted Date Diagnosed Date Leukocytosis, unspecified type 02/07/2021 Low serum vitamin B12 02/07/2021 Normocytic anemia 02/07/2021 Other iron deficiency anemia 02/07/2021 Abnormal MRI, spine 01/17/2021 Spinal cord lesion ([facility]) 01/17/2021 Anxiety 12/09/2020 Acute osteomyelitis of lumbar spine ([facility]) 12/09/2020 History of laminectomy 12/09/2020 Spontaneous pneumothorax 11/22/2020 Peripheral arterial disease with history of revascularization 01/31/2018 High risk medication use 01/30/2018 History of claustrophobia 12/16/2017 Arteriosclerosis of coronary artery 07/01/2017 Cervical spine fracture ([facility]) 2016 Vitamin B 12 deficiency 10/12/2015 Vitamin D deficiency 10/05/2015 Vertigo 07/27/2015 Cervical myelopathy ([facility]) 12/21/2014 Overview (01/17/2021): Transitioned From: Neck pain Cervical myelopathy ([facility]) 12/21/2014 Overview (01/17/2021): Transitioned From: Stenosis, cervical spine Tremor 12/21/2014 GERD (gastroesophageal reflux disease) 5 Atherosclerosis 12/10/2014 History of BPH 12/08/2014 Overview (02/07/2021): Transitioned From: Dysuria Anorexia 10/07/2014 Overview (01/17/2021): Transitioned From: Insomnia Depression 10/07/2014 Anxiety, generalized 08/30/2014 Bilateral arm weakness 08/09/2014 Osteoporosis 08/09/2014 Cognitive impairment 08/02/2014 Essential hypertension, benign 08/02/2014 Overview (02/07/2021): Transitioned From: Hypertension Hyperlipidemia, mixed 08/02/2014 Arthritis Back pain Coronary artery disease COPD (chronic obstructive pu lmonary disease) ([facility]) Hx of cardiac catheterization Kidney stone [place] (myocardial infarction) ([facility]) Neurological complaint Unable to walk Overview (11/26/2020): d/t sensitivity of legs Immunizations Immunization Administration Dates Next Due Fluzone High Dose - >Age 65 (Prefilled Syringe) 06/29/2014,05/07/2014 Influenza Adult (Generic) 05/30/2017,07/2017,07/26/2016,2015,07/27/2015,07/27/2015,06/29/2014 MODERNA COVID-19 (12+) MRNA, LNP-S, PF, 100 MCG/ 0.5 ML DOSE 11/04/2020 Family History Medical History Relation Comments Cancer Father Heart Disease Father Cancer Mother Heart Disease Mother Cancer Paternal Grandmother Relation Status Comments Father Mother Paternal Grandmother Social History Tobacco Use Types Packs/Day Years Used Date Smoking Tobacco: Former Cigarettes 0.3 50 Smokeless Tobacco: Never Tobacco Cessation:Counseling Given: Not Answered Comments:Quit 3yrs ago Alcohol Use Standard Drinks/Week Comments No 0 (1 standard drink = 0.6 oz pur e alcohol) Sex and Gender Information Value Date Recorded Sex Assigned at Not on file Legal Sex Male 8:18 PM CDT Gender Identity Not on file Sexual Orientation Not on file Last Filed Vital Signs Vital Sign Reading Time Taken Comments Blood Pressure 120/70 12/25/2023 10:00 PM CDT Pulse 75 12/25/2023 8:56 PM CDT Temperature 36 C (96.8 F) 12/25/2023 8:56 PM CDT Respiratory Rate 20 12/25/2023 8:56 PM CDT Oxygen Saturation 98% 12/25/2023 10:00 PM CDT Inhaled Oxygen Concentration - - Weight 90.7 kg (200 lb) 12/25/2023 8:56 PM CDT Height 175.3 cm (5' 9) 12/25/2023 8:56 PM CDT Body Mass Index 29.53 12/25/2023 8:56 PM CDT Plan of Treatment Health Maintenance Due Date Last Done Comments ASCVD Statin 1955 Colorectal Cancer Screening Colonoscopy (10 Years) 1955 Hepatitis C 01/27/1972 DTaP, Tdap and Td Vaccines ( 1 - Tdap) 1973 Pneumococcal Vaccine: 50+ Years (1 of 2 - PCV) 1973 Zoster Vaccines (1 of 2) 01/27/2004 RSV Immunization or 60+ Years (1 - Risk 60-74 years 1-dose series) 2014 ASCVD LDL 08/26/2018 08/26/2017, 12/09/2009 Annual Medicare Wellness Visit 2019 COVID-19 Vaccine (2 - 2023-2 5 season) 2024 11/04/2020 Meningococcal B Vaccine Aged Out No l onger eligible based on patient's age to complete this topic Meningococcal Vaccine Aged Out No piyush cintia eligible based on patient's age to complete this topic RSV Immunizations Under 20 Months Aged Out No longer eligible b ased on patient's age to complete this topic Medical Devices Implanted Type Area Auger Operator Device Identifier Shelf Expiration Date Model / Serial / Lot [id number] t Com Hkjed-Prdpv-[id number] 9/2020 Implanted:Qty: 1 on 04/06/2020 by Ian Melgoza MD Stent Iliac [employer]) 12/30/2022 [id number] / / [id number] Procedures Procedure Name Priority Date/Time Associated Diagnosis Comments LIPID PANEL Routine 08/26/2017 12:11 PM HEALTH AND SAFETY INSPECTOR from Last 3 Months or Most Recently Relevant to Health Maintenance Results * LIPID PANEL (08/26/2017 12:11 PM HEALTH AND SAFETY INSPECTOR) CHOLESTEROL 162 0 - 200 mg/dL [facility] TO EPIC CONVERSION HDL 49 >45 mg/dL [facility] T O EPIC CONVERSION LDL (CALCULATED) 93 0 - 130 mg/dL [facility] TO EPIC CONVERSION TRIGLYCERIDES 100 0 - 200 mg/dL [facility] TO EPIC CONVERSION CHOL/HDL RATIO 3.3 <5.0 [facility] OUP TO EPIC CONVERSION Comment: Result Comment: While a Cholesterol/HDL ratio of <5:1 is desirable, a Cholesterol/HDL ratio of <3.5:1 is optimal. 08/26/2017 12:1 1 PM HEALTH AND SAFETY INSPECTOR 08/26/2017 12:11 PM HEALTH AND SAFETY INSPECTOR Narrative [facility] TO EPIC CONVERSION - 08/26/2017 12:11 PM HEALTH AND SAFETY INSPECTOR Result Communication: Call patient with results Tiffanie Hdz MD LABORATORY Final Result [facility] TO EPIC CONVERSION from Last 3 Months or Most Recently Relevant to Health Maintenance Insurance MEDICAID MEDICARE Advance Directives * Full Code (Latest Code Status on File) Date Activated Date Inactivated Comments 12/16/2020 2:56 PM 10/23/2023 9:04 AM * Full Code Date Activated Date Inactivated Comments 11/22/2020 12:46 AM 12/05/2020 1:49 PM * Full Code Date Activated Date Inactivated Comments 04/06/2020 9:05 AM 04/06/2020 1:15 PM Care Teams Director Of Quantitative Research Relationship Specialty Start Date End Date Arron German MD [address] [place] [address] PCP - General FAMILY PRACTICE 02/28/20 Ian Melgoza MD [address] [place] [address] SURGERY 02/11/18
--- NOTE | 2025-02-23 14:26 | ED_ITS ---
HPI - General Adult General Chief complaint: Urogenital-Male Stated complaint: weakness Source: patient Mode of arrival: EMS Limitations: no limitations History of Present Illness HPI narrative: 70-year-old white male bed-bound said last night he had some chills and sweating and urinary frequency with it urinary incontinence. Today feels fine his caregiver made him come in today so they called the ambulance to bring him in. Patient is nonambulatory. He has a caregiver for 5 days a week he said last night he was sitting up in bed and he kept falling to the right but he did fine this morning took a shower with assistance of his caregiver. EMS stated his blood pressure was 109/60 with a normal respiratory rate 18 sat 98% on 6 L nasal cannula which is his baseline. Pulse was 84. Patient stated I feel fine he last voided this morning. Denies any pain difficulty breathing cough fever sore throat runny nose rash or itching bleeding or bruising swelling lumps or bumps Related Data Home Medications ?Medication ?Instructions ?Recorded ?Confirmed ?Last Taken ?Type amlodipine 5 mg tablet 7.5 mg PO BID 08/28/24 08/28/24 Unknown History apixaban 5 mg tablet (Eliquis) 5 mg PO BID 08/28/24 08/28/24 Unknown History donepezil 10 mg tablet 10 mg PO HS 08/28/24 08/28/24 Unknown History duloxetine 60 mg capsule,delayed 60 mg PO DAILY 08/28/24 08/28/24 Unknown History release hydrochlorothiazide 25 mg tablet 25 mg PO DAILY 08/28/24 08/28/24 Unknown History mirtazapine 30 mg disintegrating 30 mg PO HS 08/28/24 08/28/24 Unknown History tablet pantoprazole 40 mg tablet,delayed 40 mg PO HS 08/28/24 08/28/24 Unknown History release potassium chloride 10 mEq 10 meq PO DAILY 08/28/24 08/28/24 Unknown History tablet,extended release (Klor-Con) pravastatin 40 mg tablet 40 mg PO HS 08/28/24 08/28/24 Unknown History primidone 50 mg tablet 50 mg PO HS 08/28/24 08/28/24 Unknown History tamsulosin 0.4 mg capsule 0.4 mg PO DAILY 08/28/24 08/28/24 Unknown History Allergies Allergy/AdvReac Type Severity Reaction Status Date / Time No Known Allergies Allergy Verified 02/23/25 14:20 Review of Systems Review of Systems: All systems reviewed & are unremarkable except as noted in HPI and below PMFSH Social History Social History Substance use type: marijuana Exam Narrative: White male patient with no apparent distress.? Head normocephalic, atraumatic.? Eyes conjunctiva pink sclera nonicteric.? Extraocular movements are intact.? Ears externally normal.? Oropharynx is clear with moist mucous membranes without exudates.? Neck is supple nontender no lymphadenopathy.? Back is nontender.? Lungs are clear.? Heart is regular rate and rhythm without murmurs gallops or rubs.? Chest wall nontender. Abdomen is soft and nontender no hepatosplenomegaly or masses no CVA tenderness no abdominal bruits.? Extremities no cyanosis clubbing or edema.? Skin is warm and dry without rashes or lesions.? Neurological patient is alert and oriented x 4. Motor and sensory grossly intact.? Course Vital Signs Vital signs: Vital Signs Temperature 36.8 C 02/23/25 14:02 Pulse Rate 95 02/23/25 14:02 Respiratory Rate 20 02/23/25 14:02 Blood Pressure 95/67 L 02/23/25 14:02 Pulse Oximetry 95 02/23/25 14:02 Oxygen Delivery Room Air 02/23/25 14:02 Temperature 36.8 C 02/23/25 14:02 Pulse Rate 95 02/23/25 14:02 Respiratory Rate 20 02/23/25 14:02 Blood Pressure 95/67 L 02/23/25 14:02 Pulse Oximetry 95 02/23/25 14:02 Oxygen Delivery Room Air 02/23/25 14:02 Medical Decision Making [facility] Narrative Medical decision making narrative: Patient placed in room 4 patient was unable to void he refused straight catheterization. Given fluid to drink we still was unable to void he was wishing discharge. Said he felt fine when he came in. Said the reason why came in because his caregiver home today come in and get checked out. Independent Historian: ? Caregiver Pawan Differential Dx includes but not limited to: urinary tract infection Medications were Reviewed:? ? home meds reviewed Medications treatments given: Independently Interpreted by me:? External Source Review:?? Medical conditions/social Situation Impacting Patients Care:?? Shared decision Making:? evaluation was discussed all questions were asked and answered patient agreed with the plan. Discussed with ? Clinical impression:? ? Urinary frequency ? Patient disposition: ? discharge home ? Condition at discharge: stable Vital Signs Vital Signs: Vital Signs Temperature 36.8 C 02/23/25 14:02 Pulse Rate 95 02/23/25 14:02 Respiratory Rate 20 02/23/25 14:02 Blood Pressure 95/67 L 02/23/25 14:02 Pulse Oximetry 95 02/23/25 14:02 Oxygen Delivery Room Air 02/23/25 14:02 Temperature 36.8 C 02/23/25 14:02 Pulse Rate 95 02/23/25 14:02 Respiratory Rate 20 02/23/25 14:02 Blood Pressure 95/67 L 02/23/25 14:02 Pulse Oximetry 95 02/23/25 14:02 Oxygen Delivery Room Air 02/23/25 14:02 Discharge Plan Discharge Clinical Impression: Urinary frequency Patient Disposition: Home Condition: Stable Instructions: Antibiotic Form, Urinary Urgency and Frequency (DC) Additional Instructions: cephalexin 250 mg 3 times a day for 7 days. Follow-up with your primary care provider. Return if you get worse or develops any new symptoms. Patient Language: Vietnamese Prescriptions: New cephalexin 250 mg capsule 250 mg PO Q8H 7 Days Qty: 21 0RF No Action duloxetine 60 mg capsule,delayed release(DR/EC) 60 mg PO DAILY hydrochlorothiazide 25 mg tablet 25 mg PO DAILY pantoprazole 40 mg tablet,delayed release (DR/EC) 40 mg PO HS potassium chloride [Klor-Con 10] 10 mEq tablet extended release 10 meq PO DAILY tamsulosin 0.4 mg capsule 0.4 mg PO DAILY donepezil 10 mg tablet 10 mg PO HS mirtazapine 30 mg tablet,disintegrating 30 mg PO HS pravastatin 40 mg tablet 40 mg PO HS primidone 50 mg tablet 50 mg PO HS amlodipine 5 mg tablet 7.5 mg PO BID Eliquis 5 mg tablet 5 mg PO BID Follow-up/Referrals: UNKNOWN,DOCTOR [Non-Staff] - Time of Disposition: 15:51
--- OUTSIDE RECORDS SUMMARY | 2025-02-23 15:09 | XMS_ITS ---
Author Organization Unknown Address [place], [place] [phone] Phone Care Team Providers Care Apron Man Name Role Phone FLAVIO PERKINSALD Attending Unavailable [...] - Completed: 11/11/2024 10:24 LOINC: \TM00\\12PI\\DRAo\\BM09\ \MRHo\ [facility] [id number] [place] [id number] ---------NAME--------- NUMBER SEX AGE ADMIT DISC. XRAY# F/C TYPE ZEPP JR SERAFIN KIM [id number] M 69 11/11/24 11/11/24 16276 O/P DATE OF : 1955 M/R# [id number] #: [id number] RM \MRHx\ LOCATION: TRANSCRIBED: 11/11/24 19:04 MRI ABDOMEN W+WO CONTRAST 78688 COMPLETED:11/11/24 10:24 IRAJ [id number] {REASON-MRI ABD: ADRENAL NODULE PHYSICIAN: FLAVIO GREGORIO [...] repair of the aorta partially imaged. HS:Y. IN DISKER \ITLo\ \UNDo\ \UNDx\ \ITLx\ Reviewed and Electronically Signed by: Nav Tinoco MD Signed Date: 11/11/24 19:04 Social History Type Status Start Date End Date Code Code Syst em Smoking History Current every day smoker [id number] SNOMED CT Smoking History Unknown if ever smoked [address] Sex Male Medications Medication Start Date End Date Route Frequency Dose Code Code System Medication Instructions Home Meds Advair Diskus 250/50 0.25MG-0.05MG/1INH Inhalation Disk 02/16/2021 Unknown INHALATION EVERY 12 HOURS 1 unit(s) 456712 RxNorm 1 EACH INHALATION EVERY 12 HOURS Calcium Carbonate with Vitamin D 600MG-200IU Oral Tablet 02/16/2021 Unknown ORAL TWICE A DAY 2 TABLET RxNorm TAKE 2 TABLET ORAL TWICE A DAY DULoxetine HCl 60MG Oral Capsule, Delayed Release 02/16/2021 Unknown ORAL ONCE A DAY 60 MILLIGRA MS 897236 RxNorm TAKE 60 MILLIGRAMS ORAL ONCE A DAY Donepezil HCl 5MG Oral Tablet 02/16/2021 Unknown ORAL AT BEDTIM E 5 MILLIGRA MS 497295 RxNorm TAKE 5 MILLIGRAMS ORAL AT BEDTIME Eliquis 5MG Oral Tablet 02/16/2021 Unknown ORAL TWICE A DAY 5 MILLIGRA MS 6268435 RxNorm TAKE 5 MILLIGRAMS ORAL TWICE A DAY Gabapentin 600MG Oral Tablet 02/16/2021 Unknown ORAL THREE TIMES A DAY 600 MILLIGRA MS 253252 RxNorm TAKE 600 MILLIGRAMS ORAL THREE TIMES A DAY HYDROcodone bitartrate-acetamin ophen 5MG-325MG Oral Tablet 02/16/2021 Unknown ORAL NEEDED 3 TIMES A DAY 1 unit(s) 524164 RxNorm TAKE 1 EACH ORAL NEEDED 3 TIMES A DAY Mirtazapine 30MG Oral Tablet 02/16/2021 Unknown ORAL AT BEDTIM E 30 MILLIGRA MS 568749 RxNorm TAKE 30 MILLIGRAMS ORAL AT BEDTIME Nitroglycerin 0.4MG/1SPRAY Sublingual [place] 02/16/2021 Unknown SUBLINGUAL DIRECT ED 1 unit(s) 522999 RxNorm PLACE 1 EACH SUBLINGUAL DIRECTED Pantoprazole Sodium 40 MG Oral Tablet, Delayed Release 02/16/2021 Unknown ORAL ONCE A DAY 40 MG 745732 RxNorm TAKE 40 MG ORAL ONCE A DAY Pravastatin Sodium 40MG Oral Tablet 02/16/2021 Unknown ORAL AT BEDTIM E 40 MILLIGRA MS 498269 RxNorm TAKE 40 MILLIGRAMS ORAL AT BEDTIME Primidone 50MG Oral Tablet 02/16/2021 Unknown ORAL AT BEDTIM E 50 MILLIGRA MS 564267 RxNorm TAKE 50 MILLIGRAMS ORAL AT BEDTIME Tamsulosin HCl 0.4MG Oral Capsule 02/16/2021 Unknown ORAL ONCE A DAY 0.4 MILLIGRA MS 004189 RxNorm TAKE 0.4 MILLIGRAMS ORAL ONCE A DAY Ventolin HFA 0.09MG/1Actuation Inhalation Suspension 02/16/2021 Unknown INHALATION DIRECT ED 1 unit(s) 751115 RxNorm 1 EACH INHALATION DIRECTED amLODIPine Besylate 5MG Oral Tablet 02/16/2021 Unknown ORAL TWICE A DAY 1.5 TABLET 151199 RxNorm TAKE 1.5 TABLET ORAL TWICE A [...] Date Status Code Code System SOB active 889497823 [facility] SystemsOMED-CT LABORATORY TEST RESULT ABNORMAL active 793780974 SNOMED-CT Allergies and Adverse Reactions Allergy Substance Reaction Severity Start Date Concern Status Code Code System CONTRAST MEDIA, IODINE RELATED Hives (SNOMED-CT: 254760656) Moderate 02/20/2020 Active 463292413 SNOMED-CT Plan of Treatment Song Follow Up Visit 11/13/2024 MRI Abdomen WWO Contrast (88496) 2024 Song Follow Up Visit 05/14/2025 Encounters Encounter Diagnosis Start Date Code Code Sys tem Disorder of adrenal gland, unspecified 11/11/2024 SNOMED-CT Personal Care Team Section Performer Name Performer Role Active Date Inactive Da te Karle Nathan PCP - Primary care physician 2021-11-29 2023-07-31 Karel Nathan PCP - Primary care physician 2023-09-24 Imaging Narrative Notes [facility] 11/11/2024 19:[address] [address] ---------NAME--------- NUMBER SEX AGE ADMIT DISC. XRAY# F/C TYPE ZEPP SERAFIN KIM [id number] M 69 11/11/24 11/11/24 46593 MB O/P DATE OF : 1955 M/R# [id number] #: [id number] LOCATION: TRANSCRIBED: 11/11/24 19:04 MRI ABDOMEN W+WO CONTRAST 13669 COMPLETED:11/11/24 10:24 IRAJ [id number] {REASON-MRI ABD: ADRENAL NODULE PHYSICIAN: FLAVIO GREGORIO [...] repair of the aorta partially imaged. HS:Y. IN DISKER Reviewed and Electronically Signed by: Nav Tinoco MD Signed Date: 11/11/24 19:04
--- OUTSIDE RECORDS SUMMARY | 2025-02-23 15:09 | XMS_ITS ---
Author Organization Unknown Address [place], [place] [phone] Phone Care Team Providers Care Captain Waiter/Waitress Name Role Phone FLAVIO KEEN Attending Unavailable [...] BUN/CREAT - Collect Date/Neil e: 05/13/2024 13:07 [facility] ID: [id number] [place], [place], [id number] LOINC: 3097-3 Test Value Unit Reference Range Code Code System Flag BUN 9 mg/dL L=7 H=20 3094-0 LOINC CREATININE 1.20 mg/dL L=0.66 H=1.25 2160-0 LOINC AGE 69 00913-6 LOINC eGFR NON-AFR 64 ml/min eGFR AFR [...] Bharti Isbell D.O. PS: PS Report ID: [id number] Reading Location: [place] [address] Social History Type Status Start Date End Date Code Code Syst em Smoking History Current every day smoker 335938403 SNOMED CT Smoking History Unknown if ever smoked [address] Sex Male Medications Medication Start Date End Date Route Frequency Dose Code Code System Medication Instructions Home Meds Advair Diskus 250/50 0.25MG-0.05MG/1INH Inhalation Disk 02/16/2021 Unknown INHALATION EVERY 12 HOURS 1 unit(s) 981283 RxNorm 1 EACH INHALATION EVERY 12 HOURS Calcium Carbonate with Vitamin D 600MG-200IU Oral Tablet 02/16/2021 Unknown ORAL TWICE A DAY 2 TABLET RxNorm TAKE 2 TABLET ORAL TWICE A DAY DULoxetine HCl 60MG Oral Capsule, Delayed Release 02/16/2021 Unknown ORAL ONCE A DAY 60 MILLIGRA MS 675098 RxNorm TAKE 60 MILLIGRAMS ORAL ONCE A DAY Donepezil HCl 5MG Oral Tablet 02/16/2021 Unknown ORAL AT BEDTIM E 5 MILLIGRA MS 155643 RxNorm TAKE 5 MILLIGRAMS ORAL AT BEDTIME Eliquis 5MG Oral Tablet 02/16/2021 Unknown ORAL TWICE A DAY 5 MILLIGRA MS 2381337 RxNorm TAKE 5 MILLIGRAMS ORAL TWICE A DAY Gabapentin 600MG Oral Tablet 02/16/2021 Unknown ORAL THREE TIMES A DAY 600 MILLIGRA MS 244726 RxNorm TAKE 600 MILLIGRAMS ORAL THREE TIMES A DAY HYDROcodone bitartrate-acetamin ophen 5MG-325MG Oral Tablet 02/16/2021 Unknown ORAL NEEDED 3 TIMES A DAY 1 unit(s) 927586 RxNorm TAKE 1 EACH ORAL NEEDED 3 TIMES A DAY Mirtazapine 30MG Oral Tablet 02/16/2021 Unknown ORAL AT BEDTIM E 30 MILLIGRA MS 505732 RxNorm TAKE 30 MILLIGRAMS ORAL AT BEDTIME Nitroglycerin 0.4MG/1SPRAY Sublingual [place] 02/16/2021 Unknown SUBLINGUAL DIRECT ED 1 unit(s) 912004 RxNorm PLACE 1 EACH SUBLINGUAL DIRECTED Pantoprazole Sodium 40 MG Oral Tablet, Delayed Release 02/16/2021 Unknown ORAL ONCE A DAY 40 MG 646413 RxNorm TAKE 40 MG ORAL ONCE A DAY Pravastatin Sodium 40MG Oral Tablet 02/16/2021 Unknown ORAL AT BEDTIM E 40 MILLIGRA MS 942973 RxNorm TAKE 40 MILLIGRAMS ORAL AT BEDTIME Primidone 50MG Oral Tablet 02/16/2021 Unknown ORAL AT BEDTIM E 50 MILLIGRA MS 242988 RxNorm TAKE 50 MILLIGRAMS ORAL AT BEDTIME Tamsulosin HCl 0.4MG Oral Capsule 02/16/2021 Unknown ORAL ONCE A DAY 0.4 MILLIGRA MS 634208 RxNorm TAKE 0.4 MILLIGRAMS ORAL ONCE A DAY Ventolin HFA 0.09MG/1Actuation Inhalation Suspension 02/16/2021 Unknown INHALATION DIRECT ED 1 unit(s) 070816 RxNorm 1 EACH INHALATION DIRECTED amLODIPine Besylate 5MG Oral Tablet 02/16/2021 Unknown ORAL TWICE A DAY 1.5 TABLET 791278 RxNorm TAKE 1.5 TABLET ORAL TWICE A [...] Date Status Code Code System SOB active 101242460 SNOMED-CT LABORATORY TEST RESULT ABNORMAL active 113712440 SNOMED-CT Allergies and Adverse Reactions Allergy Substance Reaction Severity Start Date Concern Status Code Code System CONTRAST MEDIA, IODINE RELATED Hives (SNOMED-CT: 108320636) Moderate 02/20/2020 Active 251674755 SNOMED-CT Plan of Treatment Song Follow Up Visit 11/13/2024 MRI Abdomen WWO Contrast (15979) 2024 Song Follow Up Visit 05/14/2025 Encounters Encounter Diagnosis Start Date Code Code Sys tem Disorder of adrenal gland, unspecified 05/13/2024 SNOMED-CT Personal Care Team Section Performer Name Performer Role Active Date Inactive Da oleksandr Nathan PCP - Primary care physician 2021-11-29 2023-07-31 Karel Nathan PCP - Primary care physician 2023-09-24 Imaging Narrative Notes
--- OUTSIDE RECORDS SUMMARY | 2025-02-23 15:09 | XMS_ITS ---
Author Organization Unknown Address [place], [place] [phone] Phone Care Team Providers Care Watchmaking Teacher Name Role Phone FLAVIO KEEN Attending Unavailable [...] PANE L - Collect Date/Time: 09/05/2023 10:53 [facility] ID: [id number] [place], [place], [id number] LOINC: 07378-0 Test Value Unit Reference Range Code Code [...] LOINC H ANION GAP 10 L=10 H=20 32488-5 LOINC OSMOLALITY 294 mOs/kG L=280 H=296 47934-3 LOINC BUN/CREAT 16.3 3097-3 LOINC CALCIUM 10.3 mg/dL L=8.3 H=10.5 10911-5 LOINC AST 20 U/L L=15 H=46 1920-8 LOINC ALT 15 U/L L=9 H=72 1742-6 LOINC ALKALINE PHOS 95 U/L L=38 H=126 6768-6 LOINC TOTAL BILI 0.4 mg/dL L=0.2 H=1.3 1975-2 LOINC ALBUMIN 4.1 G/dL L=3.5 H=5.0 1751-7 LOINC TOTAL PROTEIN 8.1 g/L L=6.3 H=8.2 2885-2 LOINC A/G RATIO 1.0 51551-3 LOINC AGE 68 20385-2 LOINC eGFR NON-AFR 102 ml/min eGFR AFR AMER 123 ml/min LIPID PANEL - Collect Date/T chanel: 09/05/2023 10:53 [facility] ID: [id number] [place], [place], [id number] LOINC: 81526-3 Test Value Unit Reference Range Code Code System Flag FASTING NO CHOLESTEROL 142 mg/dL L=0 H=200 2093-3 LOINC TRIGLYCERIDE 98 mg/dL L=0 H=150 2571-8 LOINC HDL 46 mg/dL L=40 H=60 2085-04 [facility] LDL 81 mg/dL 2088-08 [facility] Social History Type Status Start Date End Date Code Code Syst em Smoking History Current every day smoker 201006402 SNOMED CT Smoking History Unknown if ever smoked [address] Sex Male Medications Medication Start Date End Date Route Frequency Dose Code Code System Medication Instructions Home Meds Advair Diskus 250/50 0.25MG-0.05MG/1INH Inhalation Disk 02/16/2021 Unknown INHALATION EVERY 12 HOURS 1 unit(s) 233208 RxNorm 1 EACH INHALATION EVERY 12 HOURS Calcium Carbonate with Vitamin D 600MG-200IU Oral Tablet 02/16/2021 Unknown ORAL TWICE A DAY 2 TABLET RxNorm TAKE 2 TABLET ORAL TWICE A DAY DULoxetine HCl 60MG Oral Capsule, Delayed Release 02/16/2021 Unknown ORAL ONCE A DAY 60 MILLIGRA MS 178448 RxNorm TAKE 60 MILLIGRAMS ORAL ONCE A DAY Donepezil HCl 5MG Oral Tablet 02/16/2021 Unknown ORAL AT BEDTIM E 5 MILLIGRA MS 980362 RxNorm TAKE 5 MILLIGRAMS ORAL AT BEDTIME Eliquis 5MG Oral Tablet 02/16/2021 Unknown ORAL TWICE A DAY 5 MILLIGRA MS 7747605 RxNorm TAKE 5 MILLIGRAMS ORAL TWICE A DAY Gabapentin 600MG Oral Tablet 02/16/2021 Unknown ORAL THREE TIMES A DAY 600 MILLIGRA MS 633715 RxNorm TAKE 600 MILLIGRAMS ORAL THREE TIMES A DAY HYDROcodone bitartrate-acetamin ophen 5MG-325MG Oral Tablet 02/16/2021 Unknown ORAL NEEDED 3 TIMES A DAY 1 unit(s) 835007 RxNorm TAKE 1 EACH ORAL NEEDED 3 TIMES A DAY Mirtazapine 30MG Oral Tablet 02/16/2021 Unknown ORAL AT BEDTIM E 30 MILLIGRA MS 750036 RxNorm TAKE 30 MILLIGRAMS ORAL AT BEDTIME Nitroglycerin 0.4MG/1SPRAY Sublingual [place] 02/16/2021 Unknown SUBLINGUAL DIRECT ED 1 unit(s) 169563 RxNorm PLACE 1 EACH SUBLINGUAL DIRECTED Pantoprazole Sodium 40 MG Oral Tablet, Delayed Release 02/16/2021 Unknown ORAL ONCE A DAY 40 MG 545172 RxNorm TAKE 40 MG ORAL ONCE A DAY Pravastatin Sodium 40MG Oral Tablet 02/16/2021 Unknown ORAL AT BEDTIM E 40 MILLIGRA MS 679823 RxNorm TAKE 40 MILLIGRAMS ORAL AT BEDTIME Primidone 50MG Oral Tablet 02/16/2021 Unknown ORAL AT BEDTIM E 50 MILLIGRA MS 461449 RxNorm TAKE 50 MILLIGRAMS ORAL AT BEDTIME Tamsulosin HCl 0.4MG Oral Capsule 02/16/2021 Unknown ORAL ONCE A DAY 0.4 MILLIGRA MS 480023 RxNorm TAKE 0.4 MILLIGRAMS ORAL ONCE A DAY Ventolin HFA 0.09MG/1Actuation Inhalation Suspension 02/16/2021 Unknown INHALATION DIRECT ED 1 unit(s) 211976 RxNorm 1 EACH INHALATION DIRECTED amLODIPine Besylate 5MG Oral Tablet 02/16/2021 Unknown ORAL TWICE A DAY 1.5 TABLET 728228 RxNorm TAKE 1.5 TABLET ORAL TWICE A [...] Date Status Code Code System SOB active 407203731 SNOMED-CT LABORATORY TEST RESULT ABNORMAL active 857194146 SNOMED-CT Allergies and Adverse Reactions Allergy Substance Reaction Severity Start Date Concern Status Code Code System CONTRAST MEDIA, IODINE RELATED Hives (SNOMED-CT: 711670996) Moderate 02/20/2020 Active 193613450 SNOMED-CT Plan of Treatment Song Follow Up Visit 11/13/2024 MRI Abdomen WWO Contrast (08443) 2024 Song Follow Up Visit 05/14/2025 Encounters Encounter Diagnosis Start Date Code Code Sys tem Mixed hyperlipidemia 09/05/2023 SNOMED- CT Personal Care Team Section Performer Name Performer Role Active Date Inactive Da oleksandr Nathan PCP - Primary care physician 2021-11-29 2023-07-31 Karel Nathan PCP - Primary care physician 2023-09-24
--- OUTSIDE RECORDS SUMMARY | 2025-02-23 15:11 | XMS_ITS ---
Author Organization Unknown Address [id number] [place] [phone] Phone Care Team Providers Care Mine Inspector Name Role Phone SYLVIA ROMAN Attending Unavailable [...] em Smoking History Current every day smoker 280428799 SNOMED CT Smoking History Unknown if ever smoked [address] Sex Male Medications Medication Start Date End Date Route Frequency Dose Code Code System Medication Instructions Home Meds Advair Diskus 250/50 0.25MG-0.05MG/1INH Inhalation Disk 02/16/2021 Unknown INHALATION EVERY 12 HOURS 1 unit(s) 909621 RxNorm 1 EACH INHALATION EVERY 12 HOURS Calcium Carbonate with Vitamin D 600MG-200IU Oral Tablet 02/16/2021 Unknown ORAL TWICE A DAY 2 TABLET RxNorm TAKE 2 TABLET ORAL TWICE A DAY DULoxetine HCl 60MG Oral Capsule, Delayed Release 02/16/2021 Unknown ORAL ONCE A DAY 60 MILLIGRA MS 699312 RxNorm TAKE 60 MILLIGRAMS ORAL ONCE A DAY Donepezil HCl 5MG Oral Tablet 02/16/2021 Unknown ORAL AT BEDTIM E 5 MILLIGRA MS 314183 RxNorm TAKE 5 MILLIGRAMS ORAL AT BEDTIME Eliquis 5MG Oral Tablet 02/16/2021 Unknown ORAL TWICE A DAY 5 MILLIGRA MS 2570776 RxNorm TAKE 5 MILLIGRAMS ORAL TWICE A DAY Gabapentin 600MG Oral Tablet 02/16/2021 Unknown ORAL THREE TIMES A DAY 600 MILLIGRA MS 569934 RxNorm TAKE 600 MILLIGRAMS ORAL THREE TIMES A DAY HYDROcodone bitartrate-acetamin ophen 5MG-325MG Oral Tablet 02/16/2021 Unknown ORAL NEEDED 3 TIMES A DAY 1 unit(s) 363792 RxNorm TAKE 1 EACH ORAL NEEDED 3 TIMES A DAY Mirtazapine 30MG Oral Tablet 02/16/2021 Unknown ORAL AT BEDTIM E 30 MILLIGRA MS 295889 RxNorm TAKE 30 MILLIGRAMS ORAL AT BEDTIME Nitroglycerin 0.4MG/1SPRAY Sublingual [place] 02/16/2021 Unknown SUBLINGUAL DIRECT ED 1 unit(s) 971580 RxNorm PLACE 1 EACH SUBLINGUAL DIRECTED Pantoprazole Sodium 40 MG Oral Tablet, Delayed Release 02/16/2021 Unknown ORAL ONCE A DAY 40 MG 437817 RxNorm TAKE 40 MG ORAL ONCE A DAY Pravastatin Sodium 40MG Oral Tablet 02/16/2021 Unknown ORAL AT BEDTIM E 40 MILLIGRA MS 474429 RxNorm TAKE 40 MILLIGRAMS ORAL AT BEDTIME Primidone 50MG Oral Tablet 02/16/2021 Unknown ORAL AT BEDTIM E 50 MILLIGRA MS 781844 RxNorm TAKE 50 MILLIGRAMS ORAL AT BEDTIME Tamsulosin HCl 0.4MG Oral Capsule 02/16/2021 Unknown ORAL ONCE A DAY 0.4 MILLIGRA MS 262102 RxNorm TAKE 0.4 MILLIGRAMS ORAL ONCE A DAY Ventolin HFA 0.09MG/1Actuation Inhalation Suspension 02/16/2021 Unknown INHALATION DIRECT ED 1 unit(s) 906057 RxNorm 1 EACH INHALATION DIRECTED amLODIPine Besylate 5MG Oral Tablet 02/16/2021 Unknown ORAL TWICE A DAY 1.5 TABLET 541068 RxNorm TAKE 1.5 TABLET ORAL TWICE A [...] Date Status Code Code System SOB active 879043681 SNOMED-CT LABORATORY TEST RESULT ABNORMAL active 372754478 SNOMED-CT Allergies and Adverse Reactions Allergy Substance Reaction Severity Start Date Concern Status Code Code System CONTRAST MEDIA, IODINE RELATED Hives (SNOMED-CT: 796625735) Moderate 02/20/2020 Active 858980184 SNOMED-CT Plan of Treatment Song Follow Up Visit 11/13/2024 MRI Abdomen WWO Contrast (76206) 2024 Song Follow Up Visit 05/14/2025 Encounters Encounter Diagnosis Start Date Code Code Sys tem Spinal stenosis, lumbar antonio on without neurogenic claudication 09/24/2023 SNOMED-CT Personal Care Team Section Performer Name Performer Role Active Date Inactive Jose Yanez PCP - Primary care physician 2021-11-29 2023-07-31 Karel Nathan PCP - Primary care physician 2023-09-24
--- OUTSIDE RECORDS SUMMARY | 2025-02-23 15:12 | XMS_ITS ---
Author Organization Unknown Address [id number] [place] [phone] Phone Care Team Providers Care Contract Admin Name Role Phone SYLVIA ROMAN Attending Unavailable [...] em Smoking History Current every day smoker 361055092 SNOMED CT Smoking History Unknown if ever smoked [address] Sex Male Medications Medication Start Date End Date Route Frequency Dose Code Code System Medication Instructions Home Meds Advair Diskus 250/50 0.25MG-0.05MG/1INH Inhalation Disk 02/16/2021 Unknown INHALATION EVERY 12 HOURS 1 unit(s) 412654 RxNorm 1 EACH INHALATION EVERY 12 HOURS Calcium Carbonate with Vitamin D 600MG-200IU Oral Tablet 02/16/2021 Unknown ORAL TWICE A DAY 2 TABLET RxNorm TAKE 2 TABLET ORAL TWICE A DAY DULoxetine HCl 60MG Oral Capsule, Delayed Release 02/16/2021 Unknown ORAL ONCE A DAY 60 MILLIGRA MS 367902 RxNorm TAKE 60 MILLIGRAMS ORAL ONCE A DAY Donepezil HCl 5MG Oral Tablet 02/16/2021 Unknown ORAL AT BEDTIM E 5 MILLIGRA MS 095498 RxNorm TAKE 5 MILLIGRAMS ORAL AT BEDTIME Eliquis 5MG Oral Tablet 02/16/2021 Unknown ORAL TWICE A DAY 5 MILLIGRA MS 6754587 RxNorm TAKE 5 MILLIGRAMS ORAL TWICE A DAY Gabapentin 600MG Oral Tablet 02/16/2021 Unknown ORAL THREE TIMES A DAY 600 MILLIGRA MS 653012 RxNorm TAKE 600 MILLIGRAMS ORAL THREE TIMES A DAY HYDROcodone bitartrate-acetamin ophen 5MG-325MG Oral Tablet 02/16/2021 Unknown ORAL NEEDED 3 TIMES A DAY 1 unit(s) 762380 RxNorm TAKE 1 EACH ORAL NEEDED 3 TIMES A DAY Mirtazapine 30MG Oral Tablet 02/16/2021 Unknown ORAL AT BEDTIM E 30 MILLIGRA MS 196278 RxNorm TAKE 30 MILLIGRAMS ORAL AT BEDTIME Nitroglycerin 0.4MG/1SPRAY Sublingual [place] 02/16/2021 Unknown SUBLINGUAL DIRECT ED 1 unit(s) 418643 RxNorm PLACE 1 EACH SUBLINGUAL DIRECTED Pantoprazole Sodium 40 MG Oral Tablet, Delayed Release 02/16/2021 Unknown ORAL ONCE A DAY 40 MG 520694 RxNorm TAKE 40 MG ORAL ONCE A DAY Pravastatin Sodium 40MG Oral Tablet 02/16/2021 Unknown ORAL AT BEDTIM E 40 MILLIGRA MS 142039 RxNorm TAKE 40 MILLIGRAMS ORAL AT BEDTIME Primidone 50MG Oral Tablet 02/16/2021 Unknown ORAL AT BEDTIM E 50 MILLIGRA MS 409716 RxNorm TAKE 50 MILLIGRAMS ORAL AT BEDTIME Tamsulosin HCl 0.4MG Oral Capsule 02/16/2021 Unknown ORAL ONCE A DAY 0.4 MILLIGRA MS 625963 RxNorm TAKE 0.4 MILLIGRAMS ORAL ONCE A DAY Ventolin HFA 0.09MG/1Actuation Inhalation Suspension 02/16/2021 Unknown INHALATION DIRECT ED 1 unit(s) 957915 RxNorm 1 EACH INHALATION DIRECTED amLODIPine Besylate 5MG Oral Tablet 02/16/2021 Unknown ORAL TWICE A DAY 1.5 TABLET 850120 RxNorm TAKE 1.5 TABLET ORAL TWICE A [...] Date Status Code Code System SOB active 727012293 SNOMED-CT LABORATORY TEST RESULT ABNORMAL active 965591772 SNOMED-CT Allergies and Adverse Reactions Allergy Substance Reaction Severity Start Date Concern Status Code Code System CONTRAST MEDIA, IODINE RELATED Hives (SNOMED-CT: 657654886) Moderate 02/20/2020 Active 288161241 SNOMED-CT Plan of Treatment Song Follow Up Visit 11/13/2024 MRI Abdomen WWO Contrast (37323) 2024 Song Follow Up Visit 05/14/2025 Encounters Encounter Diagnosis Start Date Code Code Sys tem Chronic obstructive lung disease 10/02/2023 78268847 SNOMED-CT Personal Care Team Section Performer Name Performer Role Active Date Inactive Jose Yanez PCP - Primary care physician 2021-11-29 2023-07-31 Karel Nathan PCP - Primary care physician 2023-09-24
--- OUTSIDE RECORDS SUMMARY | 2025-02-23 15:12 | XMS_ITS ---
Author Organization Unknown Address [place], [place] [id number] Phone Care Team Providers Care Court Administrator Name Role Phone SYLVIA ROMAN Attending Unavailable [...] - Completed: 09/16/2024 15:36 LOINC: \TM00\\10PI\\DRAo\\BM09\ \MRLo\ [address] [address] ---------NAME--------- NUMBER SEX AGE ADMIT DISC. XRAY# F/C TYPE ROZ KIM [id number] M 69 09/16/24 09/16/24 40540 MB O/P DATE OF : 1955 M/R# [id number] #: [id number] \MRHx\ LOCATION: TRANSCRIBED: 09/16/24 15:45 CT CHEST/LUNG WO CONTRAST 54425 COMPLETED:09/16/24 15:36 [facility] 50782 {REASON-CT/MRI CHEST: PULM NODULE(OTHER LUNG DIS) PHYSICIAN: [...] 3. Stable left adrenal gland nodule. HS:Y ER PLACEMENT SPECIALIST \ITLo\ \UNDo\ \UNDx\ \ITLx\ Reviewed and Electronically Signed by: Thien Howell MD Signed Date: 09/16/24 15:45 09/16/24.1548.HLH.to FLAVIO PERKINS via [employer] Social History Type Status Start Date End Date Code Code Syst em Smoking History Current every day smoker 329994230 SNOMED CT Smoking History Unknown if ever smoked [id number] Sex Male Medications Medication Start Date End Date Route Frequency Dose Code Code System Medication Instructions Home Meds Advair Diskus 250/50 0.25MG-0.05MG/1INH Inhalation Disk 02/16/2021 Unknown INHALATION EVERY 12 HOURS 1 unit(s) 380067 RxNorm 1 EACH INHALATION EVERY 12 HOURS Calcium Carbonate with Vitamin D 600MG-200IU Oral Tablet 02/16/2021 Unknown ORAL TWICE A DAY 2 TABLET RxNorm TAKE 2 TABLET ORAL TWICE A DAY DULoxetine HCl 60MG Oral Capsule, Delayed Release 02/16/2021 Unknown ORAL ONCE A DAY 60 MILLIGRA MS 357498 RxNorm TAKE 60 MILLIGRAMS ORAL ONCE A DAY Donepezil HCl 5MG Oral Tablet 02/16/2021 Unknown ORAL AT BEDTIM E 5 MILLIGRA MS 905759 RxNorm TAKE 5 MILLIGRAMS ORAL AT BEDTIME Eliquis 5MG Oral Tablet 02/16/2021 Unknown ORAL TWICE A DAY 5 MILLIGRA MS 4089852 RxNorm TAKE 5 MILLIGRAMS ORAL TWICE A DAY Gabapentin 600MG Oral Tablet 02/16/2021 Unknown ORAL THREE TIMES A DAY 600 MILLIGRA MS 121470 RxNorm TAKE 600 MILLIGRAMS ORAL THREE TIMES A DAY HYDROcodone bitartrate-acetamin ophen 5MG-325MG Oral Tablet 02/16/2021 Unknown ORAL NEEDED 3 TIMES A DAY 1 unit(s) 503923 RxNorm TAKE 1 EACH ORAL NEEDED 3 TIMES A DAY Mirtazapine 30MG Oral Tablet 02/16/2021 Unknown ORAL AT BEDTIM E 30 MILLIGRA MS 111043 RxNorm TAKE 30 MILLIGRAMS ORAL AT BEDTIME Nitroglycerin 0.4MG/1SPRAY Sublingual [place] 02/16/2021 Unknown SUBLINGUAL DIRECT ED 1 unit(s) 813087 RxNorm PLACE 1 EACH SUBLINGUAL DIRECTED Pantoprazole Sodium 40 MG Oral Tablet, Delayed Release 02/16/2021 Unknown ORAL ONCE A DAY 40 MG 257567 RxNorm TAKE 40 MG ORAL ONCE A DAY Pravastatin Sodium 40MG Oral Tablet 02/16/2021 Unknown ORAL AT BEDTIM E 40 MILLIGRA MS 282977 RxNorm TAKE 40 MILLIGRAMS ORAL AT BEDTIME Primidone 50MG Oral Tablet 02/16/2021 Unknown ORAL AT BEDTIM E 50 MILLIGRA MS 416522 RxNorm TAKE 50 MILLIGRAMS ORAL AT BEDTIME Tamsulosin HCl 0.4MG Oral Capsule 02/16/2021 Unknown ORAL ONCE A DAY 0.4 MILLIGRA MS 501939 RxNorm TAKE 0.4 MILLIGRAMS ORAL ONCE A DAY Ventolin HFA 0.09MG/1Actuation Inhalation Suspension 02/16/2021 Unknown INHALATION DIRECT ED 1 unit(s) 593891 RxNorm 1 EACH INHALATION DIRECTED amLODIPine Besylate 5MG Oral Tablet 02/16/2021 Unknown ORAL TWICE A DAY 1.5 TABLET 244234 RxNorm TAKE 1.5 TABLET ORAL TWICE A [...] Date Status Code Code System SOB active 391560805 SNOMED-CT LABORATORY TEST RESULT ABNORMAL active 031365930 SNOMED-CT Allergies and Adverse Reactions Allergy Substance Reaction Severity Start Date Concern Status Code Code System CONTRAST MEDIA, IODINE RELATED Hives (SNOMED-CT: 146158512) Moderate 02/20/2020 Active 602860036 SNOMED-CT Plan of Treatment Song Follow Up Visit 11/13/2024 MRI Abdomen WWO Contrast (15178) 2024 Song Follow Up Visit 05/14/2025 Encounters Encounter Diagnosis Start Date Code Code Sys tem Solitary pulmonary nodule 09/16/2024 SN OMED-CT Personal Care Team Section Performer Name Performer Role Active Date Inactive Da te Karel Nathan PCP - Primary care physician 2021-11-29 2023-07-31 Karel Nathan PCP - Primary care physician 2023-09-24 Imaging Narrative Notes [facility] 09/16/2024 15:48 [facility] [address] [place] [address] ---------NAME--------- NUMBER SEX AGE ADMIT DISC. XRAY# F/C TYPE ROZ PERKINSOLD [id number] M 69 09/16/24 09/16/24 21372 MB O/P DATE OF : 1955 M/R# [id number] #: [id number] LOCATION: TRANSCRIBED: 09/16/24 15:45 CT CHEST/LUNG WO CONTRAST 13153 COMPLETED:09/16/24 15:36 [facility] [address] {REASON-CT/MRI CHEST: PULM NODULE(OTHER LUNG DIS) PHYSICIAN: [...] 3. Stable left adrenal gland nodule. HS:Y ER PLACEMENT SPECIALIST Reviewed and Electronically Signed by: Thien Howell MD Signed Date: 09/16/24 15:45
--- OUTSIDE RECORDS SUMMARY | 2025-02-23 15:12 | XMS_ITS ---
Author Organization Unknown Address [place], [place] [id number] Phone Care Team Providers Care Investigative Writer Name Role Phone FLAVIO KEEN Attending Unavailable [...] PROFILE (11) - Collect Date/Time: 09/24/2023 13:24 [facility] ID: [id number] [place], [place], [id number] LOINC: Test Value Unit Reference Range Code Code System Flag Creatinine 15.1 20.0-300.0 2161-8 LOINC L Amphetamines, Urine Negative Laksna=0214 21644-2 LOINC Barbiturate Negative Qqgsex=277 3377-9 LOINC Benzodiazepines Negative Sfdshb=092 03132-6 LOINC Cannabinoids See Final Results Cutoff=20 54798-5 LOINC Cocaine (Metabolite) Negative Sexncy=535 3393-6 LOINC Opiates Negative Loozfn=589 01498-1 LOINC Oxycodone/Oxymorphone,U rine Negative Jyjkmf=015 54470-5 LOINC Phencyclidine Negative Cutoff=25 3936-2 LOINC Methadone Negative Ytqtnc=524 3773-9 LOINC Propoxyphene Negative Wejtum=486 58456-4 LOINC Meperidine Negative Bernjm=540 3746-5 LOINC Ethanol, Urine Negative Cutoff=0.020 5645-7 LOINC Cannabinoid Positive Cutoff=20 11556-0 LOINC A Carboxy THC Conf, MS, UR 336 Cutoff=10 26572-8 LOINC Specific Rayne 1.0023 2965-2 LOINC Social History Type Status Start Date End Date Code Code Syst em Smoking History Current every day smoker 608397809 SNOMED CT Smoking History Unknown if ever smoked [address] Sex Male Medications Medication Start Date End Date Route Frequency Dose Code Code System Medication Instructions Home Meds Advair Diskus 250/50 0.25MG-0.05MG/1INH Inhalation Disk 02/16/2021 Unknown INHALATION EVERY 12 HOURS 1 unit(s) 623511 RxNorm 1 EACH INHALATION EVERY 12 HOURS Calcium Carbonate with Vitamin D 600MG-200IU Oral Tablet 02/16/2021 Unknown ORAL TWICE A DAY 2 TABLET RxNorm TAKE 2 TABLET ORAL TWICE A DAY DULoxetine HCl 60MG Oral Capsule, Delayed Release 02/16/2021 Unknown ORAL ONCE A DAY 60 MILLIGRA MS 446752 RxNorm TAKE 60 MILLIGRAMS ORAL ONCE A DAY Donepezil HCl 5MG Oral Tablet 02/16/2021 Unknown ORAL AT BEDTIM E 5 MILLIGRA MS 639446 RxNorm TAKE 5 MILLIGRAMS ORAL AT BEDTIME Eliquis 5MG Oral Tablet 02/16/2021 Unknown ORAL TWICE A DAY 5 MILLIGRA MS 5423681 RxNorm TAKE 5 MILLIGRAMS ORAL TWICE A DAY Gabapentin 600MG Oral Tablet 02/16/2021 Unknown ORAL THREE TIMES A DAY 600 MILLIGRA MS 956643 RxNorm TAKE 600 MILLIGRAMS ORAL THREE TIMES A DAY HYDROcodone bitartrate-acetamin ophen 5MG-325MG Oral Tablet 02/16/2021 Unknown ORAL NEEDED 3 TIMES A DAY 1 unit(s) 579051 RxNorm TAKE 1 EACH ORAL NEEDED 3 TIMES A DAY Mirtazapine 30MG Oral Tablet 02/16/2021 Unknown ORAL AT BEDTIM E 30 MILLIGRA MS 195173 RxNorm TAKE 30 MILLIGRAMS ORAL AT BEDTIME Nitroglycerin 0.4MG/1SPRAY Sublingual [place] 02/16/2021 Unknown SUBLINGUAL DIRECT ED 1 unit(s) 867568 RxNorm PLACE 1 EACH SUBLINGUAL DIRECTED Pantoprazole Sodium 40 MG Oral Tablet, Delayed Release 02/16/2021 Unknown ORAL ONCE A DAY 40 MG 775291 RxNorm TAKE 40 MG ORAL ONCE A DAY Pravastatin Sodium 40MG Oral Tablet 02/16/2021 Unknown ORAL AT BEDTIM E 40 MILLIGRA MS 258137 RxNorm TAKE 40 MILLIGRAMS ORAL AT BEDTIME Primidone 50MG Oral Tablet 02/16/2021 Unknown ORAL AT BEDTIM E 50 MILLIGRA MS 685704 RxNorm TAKE 50 MILLIGRAMS ORAL AT BEDTIME Tamsulosin HCl 0.4MG Oral Capsule 02/16/2021 Unknown ORAL ONCE A DAY 0.4 MILLIGRA MS 175489 RxNorm TAKE 0.4 MILLIGRAMS ORAL ONCE A DAY Ventolin HFA 0.09MG/1Actuation Inhalation Suspension 02/16/2021 Unknown INHALATION DIRECT ED 1 unit(s) 108240 RxNorm 1 EACH INHALATION DIRECTED amLODIPine Besylate 5MG Oral Tablet 02/16/2021 Unknown ORAL TWICE A DAY 1.5 TABLET 703087 RxNorm TAKE 1.5 TABLET ORAL TWICE A [...] Date Status Code Code System SOB active 759439157 NewsyOMED-CT LABORATORY TEST RESULT ABNORMAL active 048736698 NewsyOMED-CT Allergies and Adverse Reactions Allergy Substance Reaction Severity Start Date Concern Status Code Code System CONTRAST MEDIA, IODINE RELATED Hives (SNOMED-CT: 396283831) Moderate 02/20/2020 Active 188603694 SNOMED-CT Plan of Treatment Song Follow Up Visit 11/13/2024 MRI Abdomen WWO Contrast (06527) 2024 Song Follow Up Visit 05/14/2025 Encounters Encounter Diagnosis Start Date Code Code Sys tem Spinal stenosis of lumbar region 09/24/2023 36582074 SNOMED-CT Personal Care Team Section Performer Name Performer Role Active Date Inactive Da oleksandr Nathan PCP - Primary care physician 2021-11-29 2023-07-31 Karel Nathan PCP - Primary care physician 2023-09-24
--- OUTSIDE RECORDS SUMMARY | 2025-02-23 15:12 | XMS_ITS | Encounter Summary ---
Author Organization [facility] Address [address] [place] [address] Care Team Providers Care Mold Cleaning And Storage Supervisor Name Role Phone Rajesh Dickerson MD Primary Care Provider Unavailab Ian Schmitz MD Unavailable [phone] Tiffanie Hdz MD Unavailable Arron German MD Primary Care Provider [phone] Encounter Details Date Type Department Care Team (Late st Contact Info) Description 01/24/2019 Abstract SFL CONVERSION [address] [place] [address] , Generic ConversionMD Social History Tobacco Use [...] documented as of this encounter Care Teams Mold Cleaning And Storage Supervisor Relationship Specialty Start Date End Date Rajesh Dickerson MD PCP - General INTERNAL MEDICINE 02/11/18 02/27/20 Tiffanie Hdz MD [address] [place], [place] [address] PCP - Med Group - [facility] Attributed Provider 08/19/15 08/18/21 Arron German MD [address] [place] [address] PCP - General FAMILY PRACTICE 02/28/20 Ian Melgoza MD [address] [place], [place] [address] SURGERY 02/11/18 documented as of this encounter
--- OUTSIDE RECORDS SUMMARY | 2025-02-23 15:12 | XMS_ITS | Encounter Summary ---
Author Organization [facility] Address [address] [place] [address] Care Team Providers Care Youth Agent Name Role Phone Ian Melgoza MD Unavailable [phone] Tiffanie Hdz MD Unavailable Arron Germna MD Primary Care Provider [phone] Encounter Details Date Type Department Care Team (Late st Contact Info) Description 04/04/2020 Pre-Procedure Call [facility] Cytotechnologist/Histotechnologist [address] [place] [address] Guru Michael RN Social History Tobacco Use [...] documented as of this encounter Care Teams Youth Agent Relationship Specialty Start Date End Date Tiffanie Hdz MD [address] [place] [address] PCP - Med Group - MSS[facility] Attributed Provider 08/19/15 08/18/21 Arron German MD [address] [place] [address] PCP - General FAMILY PRACTICE 02/28/20 Ian Melgoza MD [address] [place] [address] SURGERY 02/11/18 documented as of this encounter
--- OUTSIDE RECORDS SUMMARY | 2025-02-23 15:12 | XMS_ITS ---
Author Organization Unknown Address [place], [place] [id number] Phone Care Team Providers Care Free Lance Model Name Role Phone FLAVIO KEEN Attending Unavailable [...] PANEL - Collect Date/T chanel: 04/09/2024 13:39 [facility] ID: [id number] [place], [place], [id number] LOINC: 15028-3 Test Value Unit Reference Range Code Code System Flag FASTING NO CHOLESTEROL 164 mg/dL L=0 H=200 3-3 LOINC TRIGLYCERIDE 131 mg/dL L=0 H=150 2571-8 LOINC HDL 59 mg/dL L=40 H=60 2084-9 LOINC LDL 84 mg/dL 2088-1 LOINC COMPREHENSIVE METABOLIC PANE L - Collect Date/Time: 04/09/2024 13:39 [facility] ID: [id number] [address] [place], [place], [id number] LOINC: 87030-3 Test Value Unit Reference Range Code Code [...] LOINC H ANION GAP 12 L=10 H=20 47590-4 LOINC OSMOLALITY 288 mOs/kG L=280 H=296 69653-8 LOINC BUN/CREAT 12.5 3097-3 LOINC CALCIUM 10.1 mg/dL L=8.3 H=10.5 33287-3 LOINC AST 26 U/L L=15 H=46 1920-8 LOINC ALT 17 U/L L=9 H=72 1742-6 LOINC ALKALINE PHOS 110 U/L L=38 H=126 6768-6 LOINC TOTAL BILI 0.5 mg/dL L=0.2 H=1.3 1975-2 LOINC ALBUMIN 4.2 G/dL L=3.5 H=5.0 1751-7 LOINC TOTAL PROTEIN 8.0 g/L L=6.3 H=8.2 2885-2 LOINC A/G RATIO 1.1 90513-8 LOINC AGE 69 72677-5 LOINC eGFR NON-AFR 102 ml/min eGFR AFR AMER 123 ml/min CBC W/ DIFF - Collect Date/T chanel: 04/09/2024 13:39 [facility] ID: [id number] [address] [place], [place], [phone] LOINC: 81866-7 Test Value Unit Reference Range Code Code System Flag WBC 12.0 10^3uL L=4.8 H=10.8 H RBC 4.78 10^6uL L=4.60 H=6.20 HEMOGLOBIN 13.8 g/dL L=14.0 H=18.0 718-7 LOINC L HEMATOCRIT 45.5 VOL% L=42.0 H=52.0 4544-3 LOINC MCV 95.2 fL L=80.0 H=94.0 H MCH 28.9 pg L=27.0 H=32.0 MCHC 30.3 g/dL L=32.0 H=36.0 L PLATELETS 324 10^3uL L=100 H=400 90436-2 LOINC RDW 13.9 % L=11.7 H=15.5 %GRAN 51.7 % L=40.0 H=70.0 22475-9 LOINC %LYMPH 35.0 % L=20.0 H=45.0 736-9 LOINC %MONO 9.4 % L=2.0 H=10.0 18954-7 LOINC %EOS 2.1 % L=0.0 H=6.0 713-8 LOINC %BASO 0.9 % L=0.0 H=3.0 706-2 LOINC #NEUT 6.2 10^3uL L=1.9 H=7.6 73180-8 LOINC #LYMPH 4.2 10^3uL L=0.9 H=4.9 91813-5 LOINC #MONO 1.1 10^3uL L=0.1 H=0.9 51364-1 LOINC H #EOS 0.3 10^3uL L=0.0 H=0.6 712-0 LOINC #BASO 0.11 10^3uL L=0.00 H=0.10 98837-7 LOINC H #IM GRANS 0.1 10^3uL L=0.0 H=7.0 57005-3 LOINC %IM GRANS 0.9 % L=0.0 H=5.0 56186-1 LOINC %NRB 0.0 L=0.0 H=0.2 75365-7 LOINC #NRB 0.000 L=0.000 H=0.012 33232-1 LOINC MANUAL DIFF NOT INDICATED RBC MORPH NOT INDICATED TSH / REFLEX FT4 - Collect D ate/Time: 04/09/2024 13:39 [facility] ID: [id number] [address] [place] [address], [id number] LOINC: Test Value Unit Reference Range Code Code System Flag TSH 0.884 uIU/L L=0.470 H=4.680 46108-6 LOINC PSA-SCREENING - Collect Date /Time: 04/09/2024 13:39 [facility] ID: [id number] [address] [place] [address], [phone] LOINC: 2857-1 Test Value Unit Reference Range Code Code System Flag PSA SCREEN 0.5 ng/mL L=0.0 H=4.0 2857-1 LOINC Social History Type Status Start Date End Date Code Code Syst em Smoking History Current every day smoker 060210349 SNOMED CT Smoking History Unknown if ever smoked [address] Sex Male Medications Medication Start Date End Date Route Frequency Dose Code Code System Medication Instructions Home Meds Advair Diskus 250/50 0.25MG-0.05MG/1INH Inhalation Disk 02/16/2021 Unknown INHALATION EVERY 12 HOURS 1 unit(s) 106021 RxNorm 1 EACH INHALATION EVERY 12 HOURS Calcium Carbonate with Vitamin D 600MG-200IU Oral Tablet 02/16/2021 Unknown ORAL TWICE A DAY 2 TABLET RxNorm TAKE 2 TABLET ORAL TWICE A DAY DULoxetine HCl 60MG Oral Capsule, Delayed Release 02/16/2021 Unknown ORAL ONCE A DAY 60 MILLIGRA MS 305409 RxNorm TAKE 60 MILLIGRAMS ORAL ONCE A DAY Donepezil HCl 5MG Oral Tablet 02/16/2021 Unknown ORAL AT BEDTIM E 5 MILLIGRA MS 295349 RxNorm TAKE 5 MILLIGRAMS ORAL AT BEDTIME Eliquis 5MG Oral Tablet 02/16/2021 Unknown ORAL TWICE A DAY 5 MILLIGRA MS 0219844 RxNorm TAKE 5 MILLIGRAMS ORAL TWICE A DAY Gabapentin 600MG Oral Tablet 02/16/2021 Unknown ORAL THREE TIMES A DAY 600 MILLIGRA MS 581835 RxNorm TAKE 600 MILLIGRAMS ORAL THREE TIMES A DAY HYDROcodone bitartrate-acetamin ophen 5MG-325MG Oral Tablet 02/16/2021 Unknown ORAL NEEDED 3 TIMES A DAY 1 unit(s) 006795 RxNorm TAKE 1 EACH ORAL NEEDED 3 TIMES A DAY Mirtazapine 30MG Oral Tablet 02/16/2021 Unknown ORAL AT BEDTIM E 30 MILLIGRA MS 057825 RxNorm TAKE 30 MILLIGRAMS ORAL AT BEDTIME Nitroglycerin 0.4MG/1SPRAY Sublingual [place] 02/16/2021 Unknown SUBLINGUAL DIRECT ED 1 unit(s) 852620 RxNorm PLACE 1 EACH SUBLINGUAL DIRECTED Pantoprazole Sodium 40 MG Oral Tablet, Delayed Release 02/16/2021 Unknown ORAL ONCE A DAY 40 MG 922866 RxNorm TAKE 40 MG ORAL ONCE A DAY Pravastatin Sodium 40MG Oral Tablet 02/16/2021 Unknown ORAL AT BEDTIM E 40 MILLIGRA MS 325840 RxNorm TAKE 40 MILLIGRAMS ORAL AT BEDTIME Primidone 50MG Oral Tablet 02/16/2021 Unknown ORAL AT BEDTIM E 50 MILLIGRA MS 074505 RxNorm TAKE 50 MILLIGRAMS ORAL AT BEDTIME Tamsulosin HCl 0.4MG Oral Capsule 02/16/2021 Unknown ORAL ONCE A DAY 0.4 MILLIGRA MS 920828 RxNorm TAKE 0.4 MILLIGRAMS ORAL ONCE A DAY Ventolin HFA 0.09MG/1Actuation Inhalation Suspension 02/16/2021 Unknown INHALATION DIRECT ED 1 unit(s) 650923 RxNorm 1 EACH INHALATION DIRECTED amLODIPine Besylate 5MG Oral Tablet 02/16/2021 Unknown ORAL TWICE A DAY 1.5 TABLET 424425 RxNorm TAKE 1.5 TABLET ORAL TWICE A [...] Date Status Code Code System SOB active 978471534 SNOMED-CT LABORATORY TEST RESULT ABNORMAL active 802276867 SNOMED-CT Allergies and Adverse Reactions Allergy Substance Reaction Severity Start Date Concern Status Code Code System CONTRAST MEDIA, IODINE RELATED Hives (SNOMED-CT: 599078318) Moderate 02/20/2020 Active 266184404 SNOMED-CT Plan of Treatment Song Follow Up Visit 11/13/2024 MRI Abdomen WWO Contrast (16175) 2024 Darian Follow Up Visit 05/14/2025 Encounters Encounter Diagnosis Start Date Code Code Sys tem Mixed hyperlipidemia 04/09/2024 SNOMED- CT Personal Care Team Section Performer Name Performer Role Active Date Inactive Da oleksandr Nathan PCP - Primary care physician 2021-11-29 2023-07-31 Karel Nathan PCP - Primary care physician 2023-09-24
--- OUTSIDE RECORDS SUMMARY | 2025-02-23 15:13 | XMS_ITS | Clinical Summary ---
Author Organization [facility] Address [address] [place] [address] Care Team Providers Care Location And Measurement Technician Name Role Phone Ian Melgoza MD Unavailable [phone] Arron German MD Primary Care Provider [phone] Allergies Active Allergy Reactions Criticality Noted Date [...] azide 25 MG tablet 12/09/19 Active fluticasone-um eclidinium-raymond anterol (TRELEGY) 100-62.5-25 MCG/INH AEROSOL POWDER, BREATH ACTIVATED Active Active Problems Problem Noted Date Diagnosed Date Leukocytosis, unspecified type 02/07/2021 Low serum vitamin B12 02/07/2021 Normocytic anemia 02/07/2021 Other iron deficiency anemia 02/07/2021 Abnormal MRI, spine 01/17/2021 Spinal cord lesion ([facility]) 01/17/2021 Anxiety 12/09/2020 Acute osteomyelitis of lumbar spine ([facility]) 12/09/2020 History of laminectomy 12/09/2020 Spontaneous pneumothorax 11/22/2020 Peripheral arterial disease with history of revascularization 01/31/2018 High risk medication use 01/30/2018 History of claustrophobia 12/16/2017 Arteriosclerosis of coronary artery 07/01/2017 Cervical spine fracture ([facility]) 2016 Vitamin B 12 deficiency 10/12/2015 Vitamin D deficiency 10/05/2015 Vertigo 07/27/2015 Cervical myelopathy ([facility]) 12/21/2014 Overview (01/17/2021): Transitioned From: Neck pain Cervical myelopathy ([facility]) 12/21/2014 Overview (01/17/2021): Transitioned From: Stenosis, cervical [...] disease COPD (chronic obstructive pu lmonary disease) ([facility]) Hx of cardiac catheterization Kidney stone CA (myocardial infarction) ([facility]) Neurological complaint Unable to walk Overview (11/26/2020): [...] this topic Medical Devices Implanted Type Area Library Monitor Device Identifier Shelf Expiration Date Model / Serial / Lot [id number] t Com Kyowe-[id number] 9/2020 Implanted:Qty: 1 on 04/06/2020 by Ian Melgoza MD Stent Iliac [employer] 12/30/2022 [id number] / / [id number] Procedures Procedure Name Priority Date/Time Associated Diagnosis Comments LIPID PANEL Routine 08/26/2017 12:11 PM BRIQUETTE MOLDER from Last 3 Months or Most Recently Relevant to Health Maintenance Results * LIPID PANEL (08/26/2017 12:11 PM BRIQUETTE MOLDER) CHOLESTEROL 162 0 - 200 mg/dL [facility] [...] <3.5:1 is optimal. 08/26/2017 12:1 1 PM BRIQUETTE MOLDER 08/26/2017 12:11 PM BRI[employer]TE MOLDER Narrative [facility] TO EPIC CONVERSION - 08/26/2017 12:11 PM BRIQUETTE MOLDER Result Communication: Call patient with results Tiffanie [...] 9:05 AM 04/06/2020 1:15 PM Care Teams Location And Measurement Technician Relationship Specialty Start Date End Date Arron German MD [address] [place] [address] PCP - General FAMILY PRACTICE 02/28/20 Ian Melgoza MD [address] [place] [address] SURGERY 02/11/18
--- OUTSIDE RECORDS SUMMARY | 2025-02-23 15:13 | XMS_ITS ---
Author Organization Unknown Address [place], [place] [id number] Phone Care Team Providers Care Core Paster Name Role Phone FLAVIO KEEN Attending Unavailable [...] PROFILE (11) - Collect Date/Time: 04/16/2024 10:22 [facility] ID: [id number] [place], [place], [phone] LOINC: Test Value Unit Reference Range Code Code System Flag Creatinine 44.7 20.0-300.0 2161-8 LOINC Amphetamines, Urine Negative Ytpzjy=1171 53653-0 LOINC Barbiturate Negative Kirbtn=684 3377-9 LOINC Benzodiazepines Negative Aocanc=939 28003-3 LOINC Cannabinoids See Final Results Cutoff=20 17216-9 LOINC Cocaine (Metabolite) Negative Rqholj=942 3393-6 LOINC Opiates See Final Results Zfzrpi=926 31572-9 LOINC Oxycodone/Oxymorphone,U rine Negative Xmkpuh=468 05978-3 LOINC Phencyclidine Negative Cutoff=25 3936-2 LOINC Methadone Negative Trtxzb=086 3773-9 LOINC Propoxyphene Negative Ddsnoo=256 37042-7 LOINC Meperidine Negative Gzbyyw=371 3746-5 LOINC Ethanol, Urine Negative Cutoff=0.020 5645-7 LOINC Opiates WILL FOLLOW 53717-9 LOINC Codeine WILL FOLLOW 3507-1 LOINC Codeine Conf, MS, UR WILL FOLLOW 23253-8 LOINC Morphine WILL FOLLOW 3830-7 LOINC Morphine Conf, MS, UR WILL FOLLOW 82649-6 LOINC Hydromorphone WILL FOLLOW 9834-3 LOINC Hydromorphone Conf, MS,UR WILL FOLLOW 13682-2 LOINC Hydrocodone WILL FOLLOW 72449-8 LOINC Hydrocodone Conf, MS, UR WILL FOLLOW 99139-5 LOINC Cannabinoid WILL FOLLOW 20308-2 LOINC Carboxy THC Conf, MS, UR WILL FOLLOW 36401-4 LOINC Cannabinoid Positive Cutoff=20 87177-8 LOINC A Carboxy THC Conf, MS, UR >750 Cutoff=10 81115-2 LOINC Opiates Negative Hrdibe=882 14572-9 LOINC Social History Type Status Start Date End Date Code Code Syst em Smoking History Current every day smoker 432742894 SNOMED CT Smoking History Unknown if ever smoked [id number] Sex Male Medications Medication Start Date End Date Route Frequency Dose Code Code System Medication Instructions Home Meds Advair Diskus 250/50 0.25MG-0.05MG/1INH Inhalation Disk 02/16/2021 Unknown INHALATION EVERY 12 HOURS 1 unit(s) 219958 RxNorm 1 EACH INHALATION EVERY 12 HOURS Calcium Carbonate with Vitamin D 600MG-200IU Oral Tablet 02/16/2021 Unknown ORAL TWICE A DAY 2 TABLET RxNorm TAKE 2 TABLET ORAL TWICE A DAY DULoxetine HCl 60MG Oral Capsule, Delayed Release 02/16/2021 Unknown ORAL ONCE A DAY 60 MILLIGRA MS [id number] RxNorm TAKE 60 MILLIGRAMS ORAL ONCE A DAY Donepezil HCl 5MG Oral Tablet 02/16/2021 Unknown ORAL AT BEDTIM E 5 MILLIGRA MS 556211 RxNorm TAKE 5 MILLIGRAMS ORAL AT BEDTIME Eliquis 5MG Oral Tablet 02/16/2021 Unknown ORAL TWICE A DAY 5 MILLIGRA MS [id number] RxNorm TAKE 5 MILLIGRAMS ORAL TWICE A DAY Gabapentin 600MG Oral Tablet 02/16/2021 Unknown ORAL THREE TIMES A DAY 600 MILLIGRA MS 601063 RxNorm TAKE 600 MILLIGRAMS ORAL THREE TIMES A DAY HYDROcodone bitartrate-acetamin ophen 5MG-325MG Oral Tablet 02/16/2021 Unknown ORAL NEEDED 3 TIMES A DAY 1 unit(s) 291725 RxNorm TAKE 1 EACH ORAL NEEDED 3 TIMES A DAY Mirtazapine 30MG Oral Tablet 02/16/2021 Unknown ORAL AT BEDTIM E 30 MILLIGRA MS 601282 RxNorm TAKE 30 MILLIGRAMS ORAL AT BEDTIME Nitroglycerin 0.4MG/1SPRAY Sublingual [place] 02/16/2021 Unknown SUBLINGUAL DIRECT ED 1 unit(s) 772389 RxNorm PLACE 1 EACH SUBLINGUAL DIRECTED Pantoprazole Sodium 40 MG Oral Tablet, Delayed Release 02/16/2021 Unknown ORAL ONCE A DAY 40 MG 423602 RxNorm TAKE 40 MG ORAL ONCE A DAY Pravastatin Sodium 40MG Oral Tablet 02/16/2021 Unknown ORAL AT BEDTIM E 40 MILLIGRA MS 863738 RxNorm TAKE 40 MILLIGRAMS ORAL AT BEDTIME Primidone 50MG Oral Tablet 02/16/2021 Unknown ORAL AT BEDTIM E 50 MILLIGRA MS 720442 RxNorm TAKE 50 MILLIGRAMS ORAL AT BEDTIME Tamsulosin HCl 0.4MG Oral Capsule 02/16/2021 Unknown ORAL ONCE A DAY 0.4 MILLIGRA MS 013055 RxNorm TAKE 0.4 MILLIGRAMS ORAL ONCE A DAY Ventolin HFA 0.09MG/1Actuation Inhalation Suspension 02/16/2021 Unknown INHALATION DIRECT ED 1 unit(s) 020554 RxNorm 1 EACH INHALATION DIRECTED amLODIPine Besylate 5MG Oral Tablet 02/16/2021 Unknown ORAL TWICE A DAY 1.5 TABLET 647305 RxNorm TAKE 1.5 TABLET ORAL TWICE A [...] Date Status Code Code System SOB active 487204901 SNOMED-CT LABORATORY TEST RESULT ABNORMAL active 069842368 SNOMED-CT Allergies and Adverse Reactions Allergy Substance Reaction Severity Start Date Concern Status Code Code System CONTRAST MEDIA, IODINE RELATED Hives (SNOMED-CT: 706660478) Moderate 02/20/2020 Active 805973442 SNOMED-CT Plan of Treatment Song Follow Up Visit 11/13/2024 MRI Abdomen WWO Contrast (64254) 2024 Song Follow Up Visit 05/14/2025 Encounters Encounter Diagnosis Start Date Code Code Sys tem Spinal stenosis, lumbar antonio on without neurogenic claudication 04/16/2024 SNOMED-CT Personal Care Team Section Performer Name Performer Role Active Date Inactive Da oleksandr Nathan PCP - Primary care physician 2021-11-29 2023-07-31 Karel Nathan PCP - Primary care physician 2023-09-24
== END 2025-02-23 16:32 | disposition home or self-care (01) ==
PROVIDERS: Emergency Provider Emergency Medicine
DX: R35.0 Frequency of micturition (principal)
CPT/HCPCS: 99281